=== PATIENT | female | born 1965 | race Caucasian/White ===

== ENCOUNTER 2022-03-25 14:55 | Inpatient (IN) | payer MEDICAID ==
[~2022-03-25] VITALS: Ht 167.6 cm; Wt 94.8 kg
[2022-03-25 15:31] LABS: HEMATOCRIT 29.4 % (31.2-41.9); MEAN CORPUSCULAR HEMOGLOBIN 35.3 uug (24.7-32.8); MEAN CORPUSCULAR VOLUME 108.7 fL (75.5-95.3); PLATELET COUNT (AUTO) 191 K/uL (179-408)
[2022-03-25] MEDS ORDERED: MORPHINE SULFATE 2 MG/1 ML DISP.SYRIN IV ONE ×2 (15:45→18:15)
--- NOTE | 2022-03-25 15:45 | NUR ---
PT IS IN ROOM #2A. DR MARTINEZ EVALUATED THE PT.
[2022-03-25 15:56] LABS: CARBON DIOXIDE 30 mmol/L (21-32); CHLORIDE 100 mmol/L (98-107); CREATININE 1.8 mg/dL (0.6-1.3); GLUCOSE 162 mg/dL (74-106); POTASSIUM 4.3 mmol/L (3.5-5.1); UREA NITROGEN, BLOOD 19 mg/dL (7-18)
[2022-03-25] MEDS ORDERED: MORPHINE SULFATE 2 MG/1 ML DISP.SYRIN ONE ×3 (16:00→23:42)
[2022-03-25] MEDS ORDERED: FOLI1TAB94 PO (16:05)
[2022-03-25] MEDS ORDERED: DOCU100C36 PO (16:05)
[2022-03-25 16:09] LABS: ALANINE AMINOTRANSFERASE 16 U/L (14-59); ALKALINE PHOSPHATASE 114 U/L (50-136); ASPARTATE AMINOTRANSFERASE 26 U/L (15-37); BILIRUBIN,DIRECT 0.2 mg/dL (0.0-0.2); BILIRUBIN,TOTAL 0.9 mg/dL (0.2-1.0); TOTAL PROTEIN, SERUM 6.8 g/dL (6.4-8.2)
[2022-03-25] MEDS ORDERED: BISA-79 PO (16:25)
[2022-03-25] MEDS ORDERED: METH-806 PO (16:25)
[2022-03-25] MEDS ORDERED: SODI5POW2 PO (16:25)
[2022-03-25] MEDS ORDERED: LEVO50TA8 PO (16:25)
[2022-03-25] MEDS ORDERED: SENN-261 PO (16:25)
[2022-03-25] MEDS ORDERED: QUET25TA PO (16:25)
[2022-03-25] MEDS ORDERED: NYSTATIN TP (16:25)
[2022-03-25] MEDS ORDERED: BISA10SU61 RC (16:25)
[2022-03-25] MEDS ORDERED: MONT10TA22 PO (16:25)
[2022-03-25] MEDS ORDERED: ACET-73 PO (16:25)
[2022-03-25] MEDS ORDERED: [UNRECOGNIZED DRUG - MIXTURE] PO (16:25)
[2022-03-25] MEDS ORDERED: DULO60CA45 PO (16:25)
[2022-03-25] MEDS ORDERED: FOLI0.8T2 PO (16:25)
[2022-03-25] MEDS ORDERED: INSU100C4 SQ (16:25)
[2022-03-25] MEDS ORDERED: POLY17PO4 PO (16:25)
[2022-03-25] MEDS ORDERED: MAGN400O6 PO (16:25)
[2022-03-25] MEDS ORDERED: ACET-2154 PO (16:25)
[2022-03-25] MEDS ORDERED: PANT40TA49 PO (16:25)
[2022-03-25] MEDS ORDERED: HYOS0.3732 SL (16:25)
[2022-03-25] MEDS ORDERED: CHOLECALCIFEROL PO (16:25)
[2022-03-25] MEDS ORDERED: SIME80TA15 PO (16:25)
[2022-03-25] MEDS ORDERED: FUROSEMIDE 40 MG/4 ML VIAL IV ONE (17:00)
[2022-03-25] MEDS ORDERED: FUROSEMIDE 40 MG/4 ML VIAL ONE (17:48)
--- NOTE | 2022-03-25 20:45 | NUR ---
Patient has been admitted by Dr. Martinez. Unavalible beds in third floor, floor is full. Holding patient in ER.
[2022-03-25] MEDS ORDERED: TEMAZEPAM 15 MG CAPSULE PO PRN (21:00)
[2022-03-25] MEDS: SENNOSIDES 1 TABLET PO SCH (21:00)
[2022-03-25] MEDS ORDERED: MONTELUKAST SODIUM 10 MG TABLET ONE (23:16)
[2022-03-25] MEDS: MONTELUKAST SODIUM 10 MG TABLET PO SCH (23:24)
[2022-03-25] MEDS: MORPHINE SULFATE 2 MG/1 ML DISP.SYRIN IV PRN (23:47)
[2022-03-26] MEDS: SENNOSIDES 1 TABLET PO SCH (00:30)
--- NOTE | 2022-03-26 02:14 | NUR ---
Called [facility] for panel call. Nirmala Rooney hotel reservationist, waiting for call back.
--- NOTE | 2022-03-26 02:28 | NUR ---
Spoke to Dr. Rooney for additional pain medication orders and generalized body itchiness stated per patient without visible rash. No orders at this time per Dr. Rooney.
[2022-03-26] MEDS ORDERED: MORPHINE SULFATE 2 MG/1 ML DISP.SYRIN ONE ×2 (03:53→08:48)
[2022-03-26] MEDS: MORPHINE SULFATE 2 MG/1 ML DISP.SYRIN IV PRN ×3 (03:55→10:17)
[2022-03-26] MEDS ORDERED: PANTOPRAZOLE SODIUM 40 MG TABLET.DR PO SCH (07:00)
[2022-03-26] MEDS ORDERED: LEVOTHYROXINE SODIUM 50 MCG TABLET PO SCH (07:00)
[2022-03-26] MEDS ORDERED: LEVOTHYROXINE SODIUM 50 MCG TABLET ONE (07:03)
[2022-03-26] MEDS ORDERED: PANTOPRAZOLE SODIUM 40 MG TABLET.DR PO ONE (07:03)
[2022-03-26] MEDS: PANTOPRAZOLE SODIUM 40 MG TABLET.DR PO SCH (07:06)
--- NOTE | 2022-03-26 07:10 | NUR ---
Received report from SASCHA Sweet.
[2022-03-26 07:24] LABS: HEMATOCRIT 28.9 % (31.2-41.9); MEAN CORPUSCULAR HEMOGLOBIN 35.4 uug (24.7-32.8); MEAN CORPUSCULAR VOLUME 109.3 fL (75.5-95.3); PLATELET COUNT (AUTO) 179 K/uL (179-408)
--- NOTE | 2022-03-26 07:29 | NUR ---
Morphine reassessment for 190 was not completed; therefore, I put not done.
[2022-03-26 07:37] LABS: THYROID STIMULATING HORMONE 16.537 mIU/mL (0.358-3.740)
[2022-03-26 07:43] LABS: BILIRUBIN,TOTAL 0.8 mg/dL (0.2-1.0); CREATININE 2.2 mg/dL (0.6-1.3); MAGNESIUM 2.7 mg/dL (1.8-2.4); PHOSPHOROUS 2.7 mg/dL (2.5-4.9); POTASSIUM 4.3 mmol/L (3.5-5.1); TOTAL PROTEIN, SERUM 6.6 g/dL (6.4-8.2)
[2022-03-26] MEDS ORDERED: CHOLECALCIFEROL 1,000 UNIT TABLET ONE (08:58)
[2022-03-26] MEDS ORDERED: ASPIRIN EC 81 MG TABLET.DR PO ONE (08:58)
[2022-03-26] MEDS ORDERED: METOPROLOL TARTRATE 50 MG TABLET ONE ×2 (08:58→21:44)
[2022-03-26] MEDS: DULOXETINE 60 MG CAPSULE.DR PO SCH (09:00)
[2022-03-26] MEDS: QUETIAPINE FUMARATE 25 MG TABLET PO SCH ×2 (09:00→17:00)
[2022-03-26] MEDS: METOPROLOL TARTRATE 25 MG TABLET PO SCH ×2 (09:01→21:46)
[2022-03-26] MEDS: FOLIC ACID/VITAMIN B COMP W-C TABLET PO SCH (09:02)
[2022-03-26] MEDS: CHOLECALCIFEROL 1,000 UNIT TABLET PO SCH (09:03)
[2022-03-26] MEDS: ASPIRIN EC 81 MG TABLET.DR PO SCH (09:06)
[2022-03-26] MEDS ORDERED: ONDANSETRON 4 MG/2 ML VIAL ONE ×2 (09:12→21:43)
[2022-03-26] MEDS: ONDANSETRON 4 MG/2 ML VIAL IV PRN ×2 (09:16→21:46)
[2022-03-26] MEDS ORDERED: HYDROMORPHONE 1 MG/1 ML DISP.SYRIN ONE ×2 (10:21→15:40)
[2022-03-26] MEDS: HYDROMORPHONE 1 MG/1 ML DISP.SYRIN IV PRN ×3 (10:24→21:46)
--- NOTE | 2022-03-26 11:00 | NUR ---
Dialysis team has arrived.
--- NOTE | 2022-03-26 12:30 | NUR ---
Patient provided lunch tray.
--- NOTE | 2022-03-26 14:45 | NUR ---
Dialysis completed. 3 L removed.
--- NOTE | 2022-03-26 18:53 | NUR ---
Report given to SASCHA Sweet.
--- NOTE | 2022-03-26 19:30 | NUR ---
While performing skin assessment. Noted skin rash under skin folds of both breasts and stomach fold. Patient requesting nyastatin powder.
--- NOTE | 2022-03-26 20:15 | NUR ---
Spoke to Bhumi Salmon [employer]ER regarding additional orders for patient. Given telephone order with read back for nyastatin powder, Benadryl 25mg q8hr PO PRN, and additional 0.5mg Dilaudid IV once.
--- NOTE | 2022-03-26 20:15 | NUR ---
Called [facility] for panel call. Bhumi Salmon NP operations architect, waiting for call back.
[2022-03-26] MEDS ORDERED: HYDROMORPHONE 1 MG/1 ML DISP.SYRIN IV ONE (20:30)
[2022-03-26] MEDS ORDERED: ATORVASTATIN 40 MG TABLET PO SCH (21:00)
--- NOTE | 2022-03-26 21:00 | NUR ---
Spoke with soda dry house operator. Do not have nyastatin and sennakot on floor. produce department supervisor said nyastatin not in stock in other floors. Unable to administer nyastatin powder at this time.
[2022-03-26] MEDS ORDERED: HYDROMORPHONE 2 MG/1 ML DISP.SYRIN ONE (21:37)
[2022-03-26] MEDS ORDERED: diphenhydrAMINE 25 MG CAP PO ONE (21:43)
[2022-03-26] MEDS ORDERED: MONTELUKAST SODIUM 10 MG TABLET ONE (21:43)
[2022-03-26] MEDS ORDERED: ATORVASTATIN 20 MG TABLET ONE (21:44)
[2022-03-26] MEDS: MONTELUKAST SODIUM 10 MG TABLET PO SCH (21:46)
[2022-03-26] MEDS: ATORVASTATIN 10 MG TABLET PO SCH (21:46)
--- NOTE | 2022-03-27 00:12 | NUR ---
Gave report to Will RN on third floor. Patient going to third room 316
--- NOTE | 2022-03-27 00:15 | NUR ---
Patient had large yellow void in brief. Provided perineal care.
[2022-03-27] MEDS: NYSTATIN POWDER 15 GM BOTTLE TOP SCH ×3 (00:30→21:00)
--- NOTE | 2022-03-27 00:30 | NUR ---
Mycostatin powder not given, medication not available, per RN super.
--- NOTE | 2022-03-27 00:30 | NUR ---
Admitted in tele floor under the care of Dr. dial, no sob no chest pain, tele monitor sinus rhythm, with left chest perma cath, right and leg thigh thru leg edema 2 plus, with left 5 toes amputee, left breast underneath rashes, R/L arns bruises, no dentures, patient claims she still urinating 5 days ago. cont to monitor.
--- NOTE | 2022-03-27 00:33 | NUR ---
Patient taken to third floor TELE room 316 via gurney with personal belongings. Personal belongins list completed and signed. Patient in stable condition, no signs of distress. Will RN aware of patients arrival.
[2022-03-27 01:00] VITALS: BP 94/50
[2022-03-27] MEDS: HYDROMORPHONE 1 MG/1 ML DISP.SYRIN IV PRN ×3 (02:02→22:30)
[2022-03-27] MEDS: diphenhydrAMINE 25 MG CAP PO PRN (02:02)
[2022-03-27] MEDS: PANTOPRAZOLE SODIUM 40 MG TABLET.DR PO SCH (06:15)
[2022-03-27] MEDS: LEVOTHYROXINE SODIUM 75 MCG TABLET PO SCH (06:15)
[2022-03-27 06:21] VITALS: BP 95/62
--- NOTE | 2022-03-27 06:24 | NUR ---
Patient alert oriented, no sob no chest pain, Left upper chest perma cath dressing intact, v/s stable, tele sinus rhythm at this time, cont to monitor.
--- NOTE | 2022-03-27 06:28 | NUR ---
Per ER Nurse report patient has diaylsis yesterday industrial photographer hours, took out 3 liters. cont t monitor.
[2022-03-27 06:50] LABS: HEMATOCRIT 29.8 % (31.2-41.9); MEAN CORPUSCULAR HEMOGLOBIN 35.9 uug (24.7-32.8); MEAN CORPUSCULAR VOLUME 109.9 fL (75.5-95.3); PLATELET COUNT (AUTO) 182 K/uL (179-408)
[2022-03-27 07:14] LABS: BILIRUBIN,TOTAL 0.7 mg/dL (0.2-1.0); MAGNESIUM 2.4 mg/dL (1.8-2.4); PHOSPHOROUS 2.4 mg/dL (2.5-4.9); POTASSIUM 4.2 mmol/L (3.5-5.1); TOTAL PROTEIN, SERUM 6.5 g/dL (6.4-8.2)
[2022-03-27] MEDS: ASPIRIN EC 81 MG TABLET.DR PO SCH (08:21)
[2022-03-27] MEDS: QUETIAPINE FUMARATE 25 MG TABLET PO SCH ×3 (08:21→17:00)
[2022-03-27] MEDS: DULOXETINE 60 MG CAPSULE.DR PO SCH ×2 (08:21→08:45)
[2022-03-27] MEDS: FOLIC ACID/VITAMIN B COMP W-C TABLET PO SCH (08:22)
[2022-03-27] MEDS: CHOLECALCIFEROL 1,000 UNIT TABLET PO SCH (08:22)
[2022-03-27] MEDS: METOPROLOL TARTRATE 25 MG TABLET PO SCH ×3 (08:26→21:00)
[2022-03-27] MEDS: ONDANSETRON 4 MG/2 ML VIAL IV PRN ×3 (08:31→23:08)
[2022-03-27 11:42] VITALS: BP 81/38
[2022-03-27 16:40] VITALS: BP 94/53
[2022-03-27 20:00] VITALS: BP 106/40
[2022-03-27] MEDS: SENNOSIDES 1 TABLET PO SCH (22:43)
[2022-03-27] MEDS: MONTELUKAST SODIUM 10 MG TABLET PO SCH (22:43)
[2022-03-27] MEDS: ATORVASTATIN 10 MG TABLET PO SCH (22:43)
[2022-03-28] VITALS: BP 99/31
[2022-03-28] MEDS: TEMAZEPAM 7.5 MG CAPSULE PO PRN ×2 (01:46→23:33)
[2022-03-28] MEDS: diphenhydrAMINE 25 MG CAP PO PRN ×3 (01:46→22:23)
[2022-03-28] MEDS: HYDROMORPHONE 1 MG/1 ML DISP.SYRIN IV PRN ×3 (02:02→09:25)
[2022-03-28] MEDS: ONDANSETRON 4 MG/2 ML VIAL IV PRN (05:13)
[2022-03-28 06:00] VITALS: BP 124/54
--- NOTE | 2022-03-28 06:00 | NUR ---
--PT CONT. WITH STABLE VS. PT HAS RECEIVED H.DIALYSIS. PT RUT WELL. 3100CC TAKEN OFF. IV I/P VIA LEFT ARM IV HL. PT HAS LEFT CHEST PERMACATH. PT C/O PAIN(GENERAL C/O PAIN). PT MED FOR PAIN WITH DILAUDID 1MG TOTALX3. PT ALSO C/O ITCHIING-PT MED WITH BENADRYL. PT RESTIING QUIETLY AFTER MED. GEN. COND HAS BEEN STABLE. CEE RN
[2022-03-28] MEDS: LEVOTHYROXINE SODIUM 75 MCG TABLET PO SCH (06:24)
[2022-03-28] MEDS: PANTOPRAZOLE SODIUM 40 MG TABLET.DR PO SCH (06:24)
[2022-03-28 07:13] LABS: HEMATOCRIT 27.8 % (31.2-41.9); MEAN CORPUSCULAR HEMOGLOBIN 35.3 uug (24.7-32.8); MEAN CORPUSCULAR VOLUME 109.8 fL (75.5-95.3); PLATELET COUNT (AUTO) 162 K/uL (179-408)
[2022-03-28 07:32] LABS: BILIRUBIN,TOTAL 0.6 mg/dL (0.2-1.0); CREATININE 1.8 mg/dL (0.6-1.3); MAGNESIUM 2.3 mg/dL (1.8-2.4); PHOSPHOROUS 2.4 mg/dL (2.5-4.9); TOTAL PROTEIN, SERUM 6.4 g/dL (6.4-8.2)
[2022-03-28] MEDS: QUETIAPINE FUMARATE 25 MG TABLET PO SCH ×3 (08:40→17:00)
[2022-03-28] MEDS: DULOXETINE 60 MG CAPSULE.DR PO SCH ×2 (08:40→08:52)
[2022-03-28] MEDS: FOLIC ACID/VITAMIN B COMP W-C TABLET PO SCH (08:40)
[2022-03-28] MEDS: ASPIRIN EC 81 MG TABLET.DR PO SCH (08:40)
[2022-03-28] MEDS: CHOLECALCIFEROL 1,000 UNIT TABLET PO SCH (08:40)
[2022-03-28] MEDS: METOPROLOL TARTRATE 25 MG TABLET PO SCH ×2 (08:51→21:00)
[2022-03-28] MEDS: NYSTATIN POWDER 15 GM BOTTLE TOP SCH ×3 (09:16→21:24)
--- NOTE | 2022-03-28 10:37 | NUR ---
Pt had a little skin tear at admission. Today she scratched it with her nail and it was bleeding a little, but I applied kerlix on it and the bleeding has stopped.
[2022-03-28] MEDS ORDERED: NEUTRA PHOS PACKET PO ONE (11:00)
[2022-03-28 12:18] VITALS: BP 106/49
[2022-03-28] MEDS ORDERED: EPOETIN ALFA-EPBX 10,000 UNIT/ML VIAL SQ ONE (13:00)
[2022-03-28] MEDS ORDERED: HYDROMORPHONE 1 MG/1 ML DISP.SYRIN IV PRN (14:15)
[2022-03-28] MEDS: HYDROMORPHONE 2 MG/1 ML DISP.SYRIN IV PRN ×2 (14:31→22:12)
[2022-03-28] MEDS: NEPRO (VANILLA) 237 ML CAN PO SCH (18:11)
[2022-03-28 20:48] VITALS: BP 99/35
[2022-03-28] MEDS: SENNOSIDES 1 TABLET PO SCH (21:22)
[2022-03-28] MEDS: ATORVASTATIN 10 MG TABLET PO SCH (21:22)
[2022-03-28] MEDS: MONTELUKAST SODIUM 10 MG TABLET PO SCH (21:22)
[2022-03-29] MEDS: HYDROMORPHONE 2 MG/1 ML DISP.SYRIN IV PRN ×5 (02:25→20:58)
[2022-03-29 04:46] VITALS: BP 104/55
[2022-03-29] MEDS: LEVOTHYROXINE SODIUM 75 MCG TABLET PO SCH (06:29)
[2022-03-29] MEDS: PANTOPRAZOLE SODIUM 40 MG TABLET.DR PO SCH (06:29)
[2022-03-29] MEDS: CHOLECALCIFEROL 1,000 UNIT TABLET PO SCH (10:09)
[2022-03-29] MEDS: QUETIAPINE FUMARATE 25 MG TABLET PO SCH ×2 (10:09→10:20)
[2022-03-29] MEDS: DULOXETINE 60 MG CAPSULE.DR PO SCH ×2 (10:09→10:20)
[2022-03-29] MEDS: FOLIC ACID/VITAMIN B COMP W-C TABLET PO SCH (10:09)
[2022-03-29] MEDS: METOPROLOL TARTRATE 25 MG TABLET PO SCH ×2 (10:11→20:51)
[2022-03-29] MEDS: ASPIRIN EC 81 MG TABLET.DR PO SCH (10:11)
[2022-03-29] MEDS: NEPRO (VANILLA) 237 ML CAN PO SCH ×2 (10:12→16:44)
[2022-03-29] MEDS: NYSTATIN POWDER 15 GM BOTTLE TOP SCH ×2 (10:12→21:24)
[2022-03-29 16:03] VITALS: BP 120/52
--- NOTE | 2022-03-29 19:25 | NUR ---
Pt. resting comfortably, gets dilaudid q 4 hrs for generalized pain. No other complains. Vitals stable
[2022-03-29 20:00] VITALS: BP 122/44
--- NOTE | 2022-03-29 20:00 | NUR ---
Received Pt from Day shift. Pt is A&O x4 and cooperative. No S&S of distress. Pt is stable. Pt on 2L O2. Safety measures in place. Will continue to monitor.
[2022-03-29] MEDS: MONTELUKAST SODIUM 10 MG TABLET PO SCH (20:49)
[2022-03-29] MEDS: ATORVASTATIN 10 MG TABLET PO SCH (20:51)
[2022-03-29] MEDS: diphenhydrAMINE 25 MG CAP PO PRN (20:51)
[2022-03-29] MEDS: SENNOSIDES 1 TABLET PO SCH (20:51)
[2022-03-29] MEDS: TEMAZEPAM 7.5 MG CAPSULE PO PRN (21:09)
[2022-03-30] MEDS: HYDROMORPHONE 2 MG/1 ML DISP.SYRIN IV PRN ×5 (02:12→22:22)
[2022-03-30] MEDS: ONDANSETRON 4 MG/2 ML VIAL IV PRN ×2 (05:42→21:56)
[2022-03-30 06:02] VITALS: BP 112/58
[2022-03-30] MEDS: PANTOPRAZOLE SODIUM 40 MG TABLET.DR PO SCH (06:39)
[2022-03-30] MEDS: LEVOTHYROXINE SODIUM 75 MCG TABLET PO SCH (06:39)
--- NOTE | 2022-03-30 07:04 | NUR ---
End of shift Note: Received Pt from Day shift. Pt is A&O x4 and cooperative. No S&S of distress. Pt is stable. Pt on 2L O2. Pt continually uses Dilaudid. Safety measures in place.
[2022-03-30 07:23] LABS: HEMATOCRIT 27.9 % (31.2-41.9); MEAN CORPUSCULAR HEMOGLOBIN 35.8 uug (24.7-32.8); MEAN CORPUSCULAR VOLUME 109.4 fL (75.5-95.3); PLATELET COUNT (AUTO) 203 K/uL (179-408)
[2022-03-30 07:30] LABS: CREATININE 2.6 mg/dL (0.6-1.3); MAGNESIUM 2.2 mg/dL (1.8-2.4); PHOSPHOROUS 3.3 mg/dL (2.5-4.9); POTASSIUM 4.4 mmol/L (3.5-5.1)
--- NOTE | 2022-03-30 07:52 | NUR ---
On 2057, accidentally took 2 vials of Dilaudid for Pt (4 mg) by mistake. However, wasted 2.5 mg of this Dilaudid. This caused a discrepancy. This note is to verify that I extracted 4 mg of Dilaudid and wasted 2.5 mg of this Dilaudid and administered the ordered 1.5 mg. Discrepancy note was settled in [employer] with [place] (SASCHA), and [place] (SASCHA). Contacted pharmacy in person about this matter at 0750. Addendum: 03/30/22 at 0759 by MUNIRA LUZ RN [id number]/29/22
[2022-03-30] MEDS: FOLIC ACID/VITAMIN B COMP W-C TABLET PO SCH (08:58)
[2022-03-30] MEDS: ASPIRIN EC 81 MG TABLET.DR PO SCH (08:59)
[2022-03-30] MEDS: CHOLECALCIFEROL 1,000 UNIT TABLET PO SCH (08:59)
[2022-03-30] MEDS: METOPROLOL TARTRATE 25 MG TABLET PO SCH ×2 (09:06→20:56)
[2022-03-30] MEDS: NYSTATIN POWDER 15 GM BOTTLE TOP SCH ×2 (09:07→21:53)
[2022-03-30] MEDS: NEPRO (VANILLA) 237 ML CAN PO SCH ×2 (09:26→17:33)
[2022-03-30 11:08] VITALS: BP 110/38
[2022-03-30] MEDS: diphenhydrAMINE 25 MG CAP PO PRN (13:16)
[2022-03-30] MEDS: MIRALAX 17 GM POWD.PACK PO PRN (15:01)
[2022-03-30 15:29] VITALS: BP 94/49
--- NOTE | 2022-03-30 19:48 | NUR ---
Received Pt from Day shift. Pt was asleep during dialysis treatment, but, when woken up, is A&Ox4 and cooperative. No S&S of distress. Pt is stable. Pt on 2L O2. Pt currently receiving dialysis. Pt Safety measures in place. Will continue to monitor.
[2022-03-30 20:00] VITALS: BP 94/47
[2022-03-30] MEDS: SENNOSIDES 1 TABLET PO SCH (21:54)
[2022-03-30] MEDS: ATORVASTATIN 10 MG TABLET PO SCH (21:54)
[2022-03-30] MEDS: MONTELUKAST SODIUM 10 MG TABLET PO SCH (21:54)
[2022-03-31] MEDS: HYDROMORPHONE 2 MG/1 ML DISP.SYRIN IV PRN ×5 (02:39→23:21)
[2022-03-31 04:00] VITALS: BP 137/47
[2022-03-31] MEDS: LEVOTHYROXINE SODIUM 75 MCG TABLET PO SCH (06:46)
[2022-03-31] MEDS: PANTOPRAZOLE SODIUM 40 MG TABLET.DR PO SCH (06:46)
[2022-03-31 06:55] LABS: HEMATOCRIT 25.3 % (31.2-41.9); MEAN CORPUSCULAR HEMOGLOBIN 36.4 uug (24.7-32.8); MEAN CORPUSCULAR VOLUME 108.2 fL (75.5-95.3); PLATELET COUNT (AUTO) 186 K/uL (179-408)
[2022-03-31 07:04] LABS: CREATININE 2.3 mg/dL (0.6-1.3); POTASSIUM 3.8 mmol/L (3.5-5.1)
[2022-03-31 07:14] LABS: MAGNESIUM 2.3 mg/dL (1.8-2.4); PHOSPHOROUS 2.5 mg/dL (2.5-4.9)
--- NOTE | 2022-03-31 07:44 | NUR ---
End of shift Note: Received Pt from Day shift. Pt is A&O x4 and cooperative. No S&S of distress. Pt is stable. Pt on 3L O2. Pt continually uses Dilaudid. Safety measures in place.
[2022-03-31] MEDS: METOPROLOL TARTRATE 25 MG TABLET PO SCH ×2 (09:00→21:00)
[2022-03-31] MEDS: CHOLECALCIFEROL 1,000 UNIT TABLET PO SCH (09:02)
[2022-03-31] MEDS: FOLIC ACID/VITAMIN B COMP W-C TABLET PO SCH (09:03)
[2022-03-31] MEDS: ASPIRIN EC 81 MG TABLET.DR PO SCH (09:03)
[2022-03-31] MEDS: ACETAMINOPHEN 325 MG TABLET PO PRN ×2 (09:12→21:13)
[2022-03-31] MEDS: NEPRO (VANILLA) 237 ML CAN PO SCH ×2 (09:42→17:38)
[2022-03-31] MEDS: NYSTATIN POWDER 15 GM BOTTLE TOP SCH ×2 (09:42→21:12)
[2022-03-31 11:21] VITALS: BP 103/51
--- NOTE | 2022-03-31 11:21 | NUR ---
DR LYRIC SHCMITZ HERE AND SEEN PATIENT WITH NEW ORDERS AND NOTED
[2022-03-31] MEDS: diphenhydrAMINE 25 MG CAP PO PRN ×2 (12:33→21:26)
[2022-03-31] MEDS: AZITHROMYCIN IV 500 MG in IV DEXTROSE 5% 250 ML IV SCH (12:33)
[2022-03-31] MEDS: ONDANSETRON 4 MG/2 ML VIAL IV PRN ×2 (12:35→18:06)
[2022-03-31 14:06] LABS: HEPATITIS B SURFACE AG Negative (Negative)
[2022-03-31 15:20] VITALS: BP 104/47
--- NOTE | 2022-03-31 17:00 | NUR ---
TOLERATED IV ANTIBIOTICS ORDERED WITH NO ADVERSE OR ALLERGIC REACTIONS AT THIS TIME.
[2022-03-31] MEDS: MIRALAX 17 GM POWD.PACK PO PRN ×2 (18:06→21:12)
--- NOTE | 2022-03-31 18:07 | NUR ---
PATIENT STATED HAVING PAIN AND FEELING NAUSEA MEDICATED WITH DILAUDID AND ZOFRAN ORDERED WILL CONTINUE TO OBSERVE.
[2022-03-31 20:00] VITALS: BP 104/53
[2022-03-31] MEDS: SENNOSIDES 1 TABLET PO SCH (21:12)
[2022-03-31] MEDS: MONTELUKAST SODIUM 10 MG TABLET PO SCH (21:12)
[2022-03-31] MEDS: ATORVASTATIN 10 MG TABLET PO SCH (21:13)
[2022-04-01 04:00] VITALS: BP 115/53
[2022-04-01] MEDS: PANTOPRAZOLE SODIUM 40 MG TABLET.DR PO SCH (06:20)
[2022-04-01] MEDS: LEVOTHYROXINE SODIUM 75 MCG TABLET PO SCH (06:21)
[2022-04-01] MEDS: ONDANSETRON 4 MG/2 ML VIAL IV PRN (06:24)
[2022-04-01] MEDS: HYDROMORPHONE 2 MG/1 ML DISP.SYRIN IV PRN (06:57)
[2022-04-01 07:13] LABS: HEMATOCRIT 26.1 % (31.2-41.9); MEAN CORPUSCULAR HEMOGLOBIN 35.7 uug (24.7-32.8); MEAN CORPUSCULAR VOLUME 107.8 fL (75.5-95.3); PLATELET COUNT (AUTO) 189 K/uL (179-408)
--- NOTE | 2022-04-01 07:15 | NUR ---
RECEIVED PATIENT IN BED AWAKE ALERT ORIENTED DENIES PAIN OR DISCOMFORTS AT THIS TIME ON O2 WITH NO SHORTNESS OF BREATH CALL LIGHTS AND PERSONAL BELONGINGS ARE WITHIN EASY REACH AT THIS TIME WILL CONTINUE TO OBSERVE.
[2022-04-01 07:22] LABS: CREATININE 2.8 mg/dL (0.6-1.3)
--- NOTE | 2022-04-01 07:30 | NUR ---
REPORT GIVEN TO SASCHA [place]
--- NOTE | 2022-04-01 07:40 | NUR ---
DR ROMERO HERE SEEN PATIENT WITH NO NEW ORDERS AT THIS TIME
[2022-04-01] MEDS: ASPIRIN EC 81 MG TABLET.DR PO SCH (08:45)
[2022-04-01] MEDS: CHOLECALCIFEROL 1,000 UNIT TABLET PO SCH (08:45)
[2022-04-01] MEDS: FOLIC ACID/VITAMIN B COMP W-C TABLET PO SCH (08:45)
[2022-04-01] MEDS: METOPROLOL TARTRATE 25 MG TABLET PO SCH ×2 (08:48→20:49)
[2022-04-01] MEDS: NYSTATIN POWDER 15 GM BOTTLE TOP SCH ×2 (08:49→20:49)
[2022-04-01] MEDS: NEPRO (VANILLA) 237 ML CAN PO SCH ×2 (08:49→16:18)
--- NOTE | 2022-04-01 09:30 | NUR ---
PATIENT HAS A SMALL EMESIS OF PARTLY UNDIGESTED FOOD MOSTLY LIQUIDS SHE WAS GIVEN ZOFRAN AND NOT DUE YET SO LYRIC NOTIFIED STATED WILL SEE PATIENT.
--- NOTE | 2022-04-01 10:31 | NUR ---
PATIENT SEEN AND EXAMINED BY LYRIC SCHMITZ WITH NEW ORDERS AND NOTED.
--- NOTE | 2022-04-01 10:45 | NUR ---
PATIENT IS AWAKE ALERT AND AWARE SEEMS FORGETFUL STATED THAT SHE HAS NOT HAD A BOWEL MOVEMENT AND FEELS CONSTIPATED BUT ATTEMPTS TO REASSURE HER THAT DOCUMENTATION IN THE [employer] STATED THAT SHE DID ,DID GIVE HER MIRALAX IN THE EVENING AND SHE IS ON ROUTINE SENOKOT SO I CALLED DR MINOR WITH ORDER FOR DULCOLAX SUPPOSITORY AND NOTED. Addendum: 04/01/22 at 5247 by PRATIK GAY RN WRONG TIMING THIS ENTRY OCCURES AT 2081
[2022-04-01 11:50] VITALS: BP 163/81
[2022-04-01] MEDS: AZITHROMYCIN IV 500 MG in IV DEXTROSE 5% 250 ML IV SCH (12:31)
--- NOTE | 2022-04-01 12:33 | NUR ---
IV SITE INFILTERATED MULTIPLE ATTEMPTS LYRIC NOTIFIED WITH ORDER TO INSERT A MIDLINE MID LINE NURSE HERE AND MID LINE INSERTED TO HER LEFT UPPER ARM AND CONTINUED ON ANTIBIOTICS ORDERED.
[2022-04-01] MEDS: METOCLOPRAMIDE HCL 10 MG/2 ML VIAL IV PRN ×2 (12:46→18:23)
[2022-04-01 16:06] VITALS: BP 133/65
--- NOTE | 2022-04-01 16:16 | NUR ---
D/C PLANNING AWAITING FOR RESULTS OF CXR AND KUB ORDERED AND ALSO PER LYRIC ROMERO STATED TO HER THAT HE ORDERED DIALYSIS TO BE DONE ON PATIENT TODAY BEFORE SHE COULD BE DISCHARGED.
[2022-04-01] MEDS: MIRALAX 17 GM POWD.PACK PO PRN (18:23)
--- NOTE | 2022-04-01 18:26 | NUR ---
MEDICATED WITH REGLAN AND MIRALAX PER PATIENTS REQUEST RESTING IN BED AWAITING FOR DIALYSIS TODAY.
[2022-04-01 20:00] VITALS: BP 168/78
[2022-04-01] MEDS: ATORVASTATIN 10 MG TABLET PO SCH (20:48)
[2022-04-01] MEDS: MONTELUKAST SODIUM 10 MG TABLET PO SCH (20:48)
[2022-04-01] MEDS: SENNOSIDES 1 TABLET PO SCH (20:48)
[2022-04-01] MEDS ORDERED: BISACODYL 10 MG SUPP.RECT RC ONE (22:45)
[2022-04-02] MEDS: HYDROMORPHONE 2 MG/1 ML DISP.SYRIN IV PRN ×5 (01:00→22:39)
--- NOTE | 2022-04-02 01:00 | NUR ---
PATIENT C/O HAVING SEVERE PAIN MEDICATED WITH DILAUDID ORDERED MADE COMFORTABLE WILL OBSERVE.
[2022-04-02 04:00] VITALS: BP 137/60
--- NOTE | 2022-04-02 06:00 | NUR ---
MEDICATED WITH DILAUDID FOR PAIN REGLAN FOR C/O NAUSEA AND BENADRYL FOR ITCHING ORDERED MADE COMFORTABLE WILL CONTINUE TO OBSERVE.
[2022-04-02] MEDS: diphenhydrAMINE 25 MG CAP PO PRN ×2 (06:04→13:23)
[2022-04-02] MEDS: PANTOPRAZOLE SODIUM 40 MG TABLET.DR PO SCH (06:04)
[2022-04-02] MEDS: METOCLOPRAMIDE HCL 10 MG/2 ML VIAL IV PRN ×2 (06:04→13:24)
[2022-04-02] MEDS: LEVOTHYROXINE SODIUM 75 MCG TABLET PO SCH (06:04)
[2022-04-02 06:56] LABS: HEMATOCRIT 27.6 % (31.2-41.9); MEAN CORPUSCULAR VOLUME 107.4 fL (75.5-95.3); PLATELET COUNT (AUTO) 230 K/uL (179-408)
[2022-04-02 07:03] LABS: CREATININE 3.1 mg/dL (0.6-1.3); POTASSIUM 4.4 mmol/L (3.5-5.1)
[2022-04-02] MEDS: FOLIC ACID/VITAMIN B COMP W-C TABLET PO SCH (10:00)
[2022-04-02] MEDS: METOPROLOL TARTRATE 25 MG TABLET PO SCH ×2 (10:01→21:40)
[2022-04-02] MEDS: ASPIRIN EC 81 MG TABLET.DR PO SCH (10:01)
[2022-04-02] MEDS: CHOLECALCIFEROL 1,000 UNIT TABLET PO SCH (10:01)
[2022-04-02] MEDS: MIRALAX 17 GM POWD.PACK PO PRN (10:01)
[2022-04-02] MEDS: NYSTATIN POWDER 15 GM BOTTLE TOP SCH ×2 (10:02→21:37)
[2022-04-02] MEDS: NEPRO (VANILLA) 237 ML CAN PO SCH ×2 (10:02→17:48)
[2022-04-02 11:28] VITALS: BP 142/70
[2022-04-02] MEDS ORDERED: LEVO75TA7 PO (12:04)
[2022-04-02] MEDS ORDERED: ASPI-618 PO (12:04)
[2022-04-02] MEDS ORDERED: METO25TA6 PO (12:04)
[2022-04-02] MEDS ORDERED: AZIT500V8 IV (12:04)
[2022-04-02] MEDS ORDERED: NYST15PO4 TOP (12:04)
[2022-04-02] MEDS ORDERED: Nepro PO (12:04)
[2022-04-02] MEDS ORDERED: ATOR10TA PO (12:04)
--- NOTE | 2022-04-02 13:18 | NUR ---
dialysis stopped 2 liters removed funmi well. vss
[2022-04-02] MEDS: AZITHROMYCIN IV 500 MG in IV DEXTROSE 5% 250 ML IV SCH (13:23)
[2022-04-02 14:57] VITALS: BP 110/44
[2022-04-02 20:00] VITALS: BP 146/65
[2022-04-02] MEDS: ATORVASTATIN 10 MG TABLET PO SCH (21:35)
[2022-04-02] MEDS: SENNOSIDES 1 TABLET PO SCH (21:36)
[2022-04-02] MEDS: MONTELUKAST SODIUM 10 MG TABLET PO SCH (21:36)
[2022-04-02] MEDS: TEMAZEPAM 7.5 MG CAPSULE PO PRN (23:31)
[2022-04-03] MEDS: ACETAMINOPHEN 325 MG TABLET PO PRN (03:19)
[2022-04-03 04:00] VITALS: BP 104/62
[2022-04-03] MEDS: HYDROMORPHONE 2 MG/1 ML DISP.SYRIN IV PRN ×4 (06:36→21:52)
[2022-04-03] MEDS: PANTOPRAZOLE SODIUM 40 MG TABLET.DR PO SCH (06:36)
[2022-04-03] MEDS: LEVOTHYROXINE SODIUM 75 MCG TABLET PO SCH (07:06)
[2022-04-03 07:49] LABS: MEAN CORPUSCULAR HEMOGLOBIN 35.7 uug (24.7-32.8); MEAN CORPUSCULAR VOLUME 107.8 fL (75.5-95.3); PLATELET COUNT (AUTO) 222 K/uL (179-408)
[2022-04-03 08:00] LABS: CREATININE 2.4 mg/dL (0.6-1.3); POTASSIUM 3.9 mmol/L (3.5-5.1)
[2022-04-03] MEDS: ONDANSETRON 4 MG/2 ML VIAL IV PRN (08:47)
[2022-04-03] MEDS: FOLIC ACID/VITAMIN B COMP W-C TABLET PO SCH (08:55)
[2022-04-03] MEDS: METOPROLOL TARTRATE 25 MG TABLET PO SCH ×2 (08:55→21:00)
[2022-04-03] MEDS: ASPIRIN EC 81 MG TABLET.DR PO SCH (08:55)
[2022-04-03] MEDS: CHOLECALCIFEROL 1,000 UNIT TABLET PO SCH (08:55)
[2022-04-03] MEDS: NEPRO (VANILLA) 237 ML CAN PO SCH ×2 (08:55→17:46)
[2022-04-03] MEDS: NYSTATIN POWDER 15 GM BOTTLE TOP SCH ×2 (08:56→21:00)
[2022-04-03 11:05] VITALS: BP 135/64
[2022-04-03] MEDS: AZITHROMYCIN 250 MG TABLET PO SCH (11:56)
[2022-04-03 15:39] VITALS: BP 105/48
[2022-04-03] MEDS: MONTELUKAST SODIUM 10 MG TABLET PO SCH (21:00)
[2022-04-03] MEDS: ATORVASTATIN 10 MG TABLET PO SCH (21:00)
[2022-04-03] MEDS: SENNOSIDES 1 TABLET PO SCH (21:00)
[2022-04-03] MEDS: METOCLOPRAMIDE HCL 10 MG/2 ML VIAL IV PRN (21:52)
[2022-04-04] MEDS: HYDROMORPHONE 2 MG/1 ML DISP.SYRIN IV PRN ×4 (04:15→20:53)
[2022-04-04] MEDS: METOCLOPRAMIDE HCL 10 MG/2 ML VIAL IV PRN ×3 (04:15→20:57)
[2022-04-04] MEDS: LEVOTHYROXINE SODIUM 75 MCG TABLET PO SCH (07:16)
[2022-04-04] MEDS: PANTOPRAZOLE SODIUM 40 MG TABLET.DR PO SCH (07:16)
[2022-04-04 08:06] LABS: POTASSIUM 3.9 mmol/L (3.5-5.1)
[2022-04-04 08:07] LABS: MEAN CORPUSCULAR HEMOGLOBIN 36.1 uug (24.7-32.8); MEAN CORPUSCULAR VOLUME 108.1 fL (75.5-95.3); PLATELET COUNT (AUTO) 244 K/uL (179-408)
[2022-04-04] MEDS: FOLIC ACID/VITAMIN B COMP W-C TABLET PO SCH (08:45)
[2022-04-04] MEDS: CHOLECALCIFEROL 1,000 UNIT TABLET PO SCH (08:46)
[2022-04-04] MEDS: ASPIRIN EC 81 MG TABLET.DR PO SCH (08:46)
[2022-04-04] MEDS: NYSTATIN POWDER 15 GM BOTTLE TOP SCH ×2 (08:46→20:58)
[2022-04-04] MEDS: NEPRO (VANILLA) 237 ML CAN PO SCH ×2 (08:46→16:40)
[2022-04-04] MEDS: METOPROLOL TARTRATE 25 MG TABLET PO SCH ×2 (08:54→20:57)
[2022-04-04] MEDS: AZITHROMYCIN 250 MG TABLET PO SCH (11:35)
[2022-04-04 11:48] VITALS: BP 115/53
[2022-04-04 16:00] VITALS: BP 123/57
--- NOTE | 2022-04-04 16:45 | NUR ---
patient complained full bladder and discomfort, bladder scan performed, with 600ml output, laureano inserted, with output of 650ml, with dark coffee color, sediments, UA sent to lab as ordered
[2022-04-04 17:27] LABS: *BLOOD, URINE 2+ (NEGATIVE); *CLARITY,URINE CLOUDY (CLEAR); *COLOR,URINE YELLOW (YELLOW); *KETONES,URINE TRACE (NEGATIVE); *UROBILINOGEN,URINE 0.2 E.U./dl (NORMAL); LEUKOCYTE ESTERASE ,URINE 3+ (NEGATIVE); NITRITE, URINE NEGATIVE (NEGATIVE); PH,URINE 5.5 (5.0-8.0); UGLUCOSE NEGATIVE (NEGATIVE)
[2022-04-04 17:33] LABS: *BILIRUBIN,URIN 2+ (NEGATIVE)
--- NOTE | 2022-04-04 17:48 | NUR ---
UA result reported to YISEL Tripathi
[2022-04-04 17:51] LABS: RBC,URINE 20-50 /HPF (0-3)
[2022-04-04 17:52] LABS: BACTERIA,URINE MANY /HPF (NONE SEEN); SQUAMOUS EPITHELIAL CELL,UR MODERATE /HPF (NONE SEEN); WBC,URINE TNTC /HPF (0-3); YEAST,URINE MODERATE /HPF (NONE SEEN)
[2022-04-04] MEDS ORDERED: CEFTRIAXONE /D5W 50ML IVPB **ER PYXIS IV ONE (19:02)
[2022-04-04] MEDS: CEFTRIAXONE 1 G in IV DEXTROSE 5% 50 ML IV SCH (19:05)
--- NOTE | 2022-04-04 19:19 | NUR ---
no acute distress noted, permacath intact at right upper chest, no active bleeding noted.
[2022-04-04] MEDS: ATORVASTATIN 10 MG TABLET PO SCH (20:56)
[2022-04-04] MEDS: MONTELUKAST SODIUM 10 MG TABLET PO SCH (20:57)
[2022-04-04] MEDS: SENNOSIDES 1 TABLET PO SCH (20:57)
[2022-04-04] MEDS: TEMAZEPAM 7.5 MG CAPSULE PO PRN (21:37)
[2022-04-05] MEDS: ONDANSETRON 4 MG/2 ML VIAL IV PRN ×2 (01:44→10:23)
[2022-04-05] MEDS: ACETAMINOPHEN 325 MG TABLET PO PRN ×2 (01:49→19:02)
[2022-04-05] MEDS: HYDROMORPHONE 2 MG/1 ML DISP.SYRIN IV PRN ×3 (04:17→12:25)
[2022-04-05] MEDS: METOCLOPRAMIDE HCL 10 MG/2 ML VIAL IV PRN ×2 (05:46→17:59)
[2022-04-05] MEDS: PANTOPRAZOLE SODIUM 40 MG TABLET.DR PO SCH (06:09)
[2022-04-05] MEDS: LEVOTHYROXINE SODIUM 75 MCG TABLET PO SCH (06:09)
[2022-04-05 07:48] LABS: HEMATOCRIT 29.4 % (31.2-41.9); MEAN CORPUSCULAR HEMOGLOBIN 34.8 uug (24.7-32.8); MEAN CORPUSCULAR VOLUME 109.3 fL (75.5-95.3); PLATELET COUNT (AUTO) 257 K/uL (179-408)
[2022-04-05 08:04] LABS: CREATININE 2.6 mg/dL (0.6-1.3)
[2022-04-05] MEDS: CHOLECALCIFEROL 1,000 UNIT TABLET PO SCH (08:30)
[2022-04-05] MEDS: FOLIC ACID/VITAMIN B COMP W-C TABLET PO SCH (08:31)
[2022-04-05] MEDS: ASPIRIN EC 81 MG TABLET.DR PO SCH (08:31)
[2022-04-05] MEDS: METOPROLOL TARTRATE 25 MG TABLET PO SCH ×2 (08:32→20:56)
[2022-04-05] MEDS: NYSTATIN POWDER 15 GM BOTTLE TOP SCH (08:40)
[2022-04-05] MEDS: NEPRO (VANILLA) 237 ML CAN PO SCH ×2 (08:40→16:57)
[2022-04-05 11:35] VITALS: BP 129/60
--- NOTE | 2022-04-05 14:21 | NUR ---
WOUND CARE CONSULT: PT REFUSED TO BE TURNED FOR SKIN ASSESSMENT AT THIS TIME DUE TO NAUSEA. RN NOTIFIED. PT FOLLOWED BY SURGICAL TEAM OF DR SHIPLEY FOR OPEN SKIN TO LEFT BUTTOCK WITH SCARRING WELL BREASTFOLD REDNESS/RASH, PRESENT ON ADMISSION. DEFER TO SURGICAL TEAM FOR BUTTOCK. RECOMMENDATIONS MADE FOR SKIN PROTECTION AND CARE OF BREASTFOLD RASH. DISCUSSED WITH NURSING STAFF. MD IN AGREEMENT WITH PLAN OF CARE.
[2022-04-05] MEDS ORDERED: REMEDY ESSENTIAL ZINC PASTE 113 GM TOP PRN (14:30)
[2022-04-05 15:44] VITALS: BP 141/71
[2022-04-05] MEDS: HYDROMORPHONE 1 MG/1 ML DISP.SYRIN IV PRN ×2 (16:52→21:01)
[2022-04-05] MEDS: CLOTRIMAZOLE 1% CREAM 30 GM TUBE TOP SCH (16:58)
[2022-04-05] MEDS: CEFTRIAXONE 1 G in IV DEXTROSE 5% 50 ML IV SCH (18:04)
--- NOTE | 2022-04-05 20:13 | NUR ---
RECEIVED REPORT FROM HELENA MAZARIEGOS NOC SHIFT. PATIENT IS ALERT AND & ORIENTED X4, AND SPEAKS ESTONIAN. PATIENT TOLERATES DIET AND PO/IV MEDICATIONS WELL. CARREON CATHETER PATENT AND DRAINING. PATIENT HAD REPORTS OF PAIN, BUT MANAGED WITH PAIN MEDICATIONS PER MD ORDER. PATIENT HAD REQUESTED A DECREASE IN DILAUDID FROM 1.5MG TO 1 MG. MD NOTIFIED AND CHANGED ORDER. PATIENT PENDING FOR HEMODIALYSIS. RN DID NOT ADMIN BLOOD PRESSURE WAITING FOR HEMODIALYSIS TO COME. NO ACUTE DISTRESSED NOTED. FALL PRECAUTIONS OBSERVED, BED IN LOWEST POSITION AND BED ALARM ACTIVATED. ALL NEEDS MET AT THIS TIME. ENDORSED CARE TO HELENA MAZARIEGOS, FOR CONTINUATION OF CARE.
[2022-04-05 20:25] VITALS: BP 137/64
[2022-04-05] MEDS: REMEDY ESSENTIAL ZINC PASTE 113 GM TOP SCH (20:52)
[2022-04-05] MEDS: SENNOSIDES 1 TABLET PO SCH (20:52)
[2022-04-05] MEDS: MONTELUKAST SODIUM 10 MG TABLET PO SCH (20:52)
[2022-04-05] MEDS: ATORVASTATIN 10 MG TABLET PO SCH (20:56)
[2022-04-05] MEDS: TEMAZEPAM 7.5 MG CAPSULE PO PRN (21:43)
[2022-04-06] MEDS: METOCLOPRAMIDE HCL 10 MG/2 ML VIAL IV PRN ×3 (02:26→14:52)
[2022-04-06] MEDS: HYDROMORPHONE 1 MG/1 ML DISP.SYRIN IV PRN ×5 (02:26→20:38)
[2022-04-06] MEDS: LEVOTHYROXINE SODIUM 75 MCG TABLET PO SCH (06:22)
[2022-04-06] MEDS: PANTOPRAZOLE SODIUM 40 MG TABLET.DR PO SCH (06:22)
[2022-04-06] MEDS: ASPIRIN EC 81 MG TABLET.DR PO SCH (08:02)
[2022-04-06] MEDS: CHOLECALCIFEROL 1,000 UNIT TABLET PO SCH (08:02)
[2022-04-06] MEDS: FOLIC ACID/VITAMIN B COMP W-C TABLET PO SCH (08:02)
[2022-04-06] MEDS: METOPROLOL TARTRATE 25 MG TABLET PO SCH ×2 (08:02→20:37)
[2022-04-06] MEDS: NEPRO (VANILLA) 237 ML CAN PO SCH ×2 (08:03→16:15)
[2022-04-06] MEDS: REMEDY ESSENTIAL ZINC PASTE 113 GM TOP SCH ×2 (08:03→20:44)
[2022-04-06] MEDS: CLOTRIMAZOLE 1% CREAM 30 GM TUBE TOP SCH ×2 (08:03→16:15)
[2022-04-06 08:27] VITALS: BP 112/77
[2022-04-06 08:27] LABS: HEMATOCRIT 27.6 % (31.2-41.9); MEAN CORPUSCULAR HEMOGLOBIN 35.3 uug (24.7-32.8); MEAN CORPUSCULAR VOLUME 108.8 fL (75.5-95.3); PLATELET COUNT (AUTO) 236 K/uL (179-408)
[2022-04-06 09:09] LABS: POTASSIUM 4.3 mmol/L (3.5-5.1)
[2022-04-06] MEDS ORDERED: FLUCONAZOLE 400MG /NS 200ML IV 400 MG in PREMIXED 1 EACH IV SCH (10:30)
[2022-04-06 11:26] VITALS: BP 142/72
[2022-04-06] MEDS ORDERED: FLUCONAZOLE 200 MG/NS 100ML IV 200 MG in PREMIXED 1 EACH IV ONE (12:00)
[2022-04-06 16:00] VITALS: BP 118/58
[2022-04-06] MEDS: CEFTRIAXONE 1 G in IV DEXTROSE 5% 50 ML IV SCH (17:57)
--- NOTE | 2022-04-06 19:57 | NUR ---
RECEIVED REPORT FROM TRUONG MAZARIEGOS CONCRETE ENGINEERING TECHNICIAN SHIFT. PATIENT ALERT & ORIENTED X4 AND SPEAKS SOUTH KOREAN. VITAL SIGNS STABLE. PATIENT TOLERATES PO AND IV MEDICATIONS WELL. PATIENT TOLERATES DIET. PATIENT CARREON CATHETER PATENT AND DRAINING. ONE SMALL BOWEL MOVEMENT NOTED. PAIN MANAGED WITH MEDICATIONS INDICATED. PATIENT REQUESTED TO BE ON ZOFRAN INSTEAD OF REGLAN, HER NAUSEA FELT UNCONTROLLED. RN NOTIFIED PROVIDER. PROVIDER ORDER ENTERED INDICATED. NO ACUTE DISTRESS NOTED. ALL NEEDS MET AT THIS TIME. ENDORSED CARE TO SASCHA RAMIREZ.
[2022-04-06] MEDS: MONTELUKAST SODIUM 10 MG TABLET PO SCH (20:37)
[2022-04-06] MEDS: ATORVASTATIN 10 MG TABLET PO SCH (20:37)
[2022-04-06] MEDS: SENNOSIDES 1 TABLET PO SCH (20:38)
[2022-04-06] MEDS: ONDANSETRON 4 MG/2 ML VIAL IV PRN (20:38)
[2022-04-06 20:46] VITALS: BP 145/59
[2022-04-07] MEDS: TEMAZEPAM 7.5 MG CAPSULE PO PRN ×2 (01:00→21:20)
[2022-04-07] MEDS: HYDROMORPHONE 1 MG/1 ML DISP.SYRIN IV PRN ×6 (01:00→23:21)
--- NOTE | 2022-04-07 03:45 | NUR ---
Awake alert and oriented x4 All needs attended. VSS. Patient getting dialysis at beginning of shift. Tolerated well. 2L out. No acute distress noted. Medicated with dilaudid 1 mg as needed. Relief noted. Purdy catheter intact draining yellow urine. Left upper midline intact flushed and patent. Kept comfortable. Will monitor patient.
[2022-04-07] MEDS: ONDANSETRON 4 MG/2 ML VIAL IV PRN ×4 (04:29→23:21)
[2022-04-07 05:04] VITALS: BP 113/52
[2022-04-07] MEDS: LEVOTHYROXINE SODIUM 75 MCG TABLET PO SCH (06:34)
[2022-04-07] MEDS: PANTOPRAZOLE SODIUM 40 MG TABLET.DR PO SCH (06:34)
[2022-04-07 07:11] LABS: HEMATOCRIT 27.8 % (31.2-41.9); MEAN CORPUSCULAR HEMOGLOBIN 35.9 uug (24.7-32.8); PLATELET COUNT (AUTO) 253 K/uL (179-408)
[2022-04-07 07:46] LABS: MAGNESIUM 1.9 mg/dL (1.8-2.4); POTASSIUM 3.4 mmol/L (3.5-5.1)
[2022-04-07 08:30] VITALS: BP 120/53
[2022-04-07] MEDS: METOPROLOL TARTRATE 25 MG TABLET PO SCH ×2 (08:48→21:13)
[2022-04-07] MEDS: CHOLECALCIFEROL 1,000 UNIT TABLET PO SCH (08:48)
[2022-04-07] MEDS: FOLIC ACID/VITAMIN B COMP W-C TABLET PO SCH (08:48)
[2022-04-07] MEDS: ASPIRIN EC 81 MG TABLET.DR PO SCH (08:48)
[2022-04-07] MEDS: REMEDY ESSENTIAL ZINC PASTE 113 GM TOP SCH ×2 (08:49→21:14)
[2022-04-07] MEDS: CLOTRIMAZOLE 1% CREAM 30 GM TUBE TOP SCH ×2 (08:49→17:51)
[2022-04-07] MEDS: NEPRO (VANILLA) 237 ML CAN PO SCH ×2 (08:50→17:00)
[2022-04-07] MEDS: FLUCONAZOLE 200 MG/NS 100ML IV 100 MG in PREMIXED 1 EACH IV SCH (09:41)
[2022-04-07] MEDS ORDERED: POTASSIUM CHLORIDE 10 MEQ TAB.PRT.SR PO ONE (10:00)
[2022-04-07 12:00] VITALS: BP 139/79
[2022-04-07 16:00] VITALS: BP 126/53
[2022-04-07] MEDS: CEFTRIAXONE 1 G in IV DEXTROSE 5% 50 ML IV SCH (17:45)
[2022-04-07] MEDS: MONTELUKAST SODIUM 10 MG TABLET PO SCH (21:13)
[2022-04-07] MEDS: SENNOSIDES 1 TABLET PO SCH (21:13)
[2022-04-07] MEDS: ATORVASTATIN 10 MG TABLET PO SCH (21:13)
--- NOTE | 2022-04-07 21:20 | NUR ---
Restoril given as per patient request to help her sleep .
[2022-04-07 22:00] VITALS: BP 141/63
--- NOTE | 2022-04-07 23:21 | NUR ---
pain medication give as per patient request c/o abdominal pain . Dilaudid 1 mg prn given . Zofran also given c/o nausea.
[2022-04-07] MEDS: diphenhydrAMINE 25 MG CAP PO PRN (23:23)
[2022-04-08] MEDS: HYDROMORPHONE 1 MG/1 ML DISP.SYRIN IV PRN ×4 (04:50→20:45)
[2022-04-08] MEDS: ONDANSETRON 4 MG/2 ML VIAL IV PRN ×2 (06:05→13:56)
[2022-04-08] MEDS: LEVOTHYROXINE SODIUM 75 MCG TABLET PO SCH (06:05)
[2022-04-08] MEDS: PANTOPRAZOLE SODIUM 40 MG TABLET.DR PO SCH (06:05)
[2022-04-08 08:09] LABS: CREATININE 2.4 mg/dL (0.6-1.3); POTASSIUM 4.2 mmol/L (3.5-5.1)
[2022-04-08] MEDS: METOPROLOL TARTRATE 25 MG TABLET PO SCH ×3 (09:00→22:08)
[2022-04-08] MEDS: REMEDY ESSENTIAL ZINC PASTE 113 GM TOP SCH ×2 (09:38→22:09)
[2022-04-08] MEDS: FLUCONAZOLE 200 MG/NS 100ML IV 100 MG in PREMIXED 1 EACH IV SCH (09:39)
[2022-04-08] MEDS: ASPIRIN EC 81 MG TABLET.DR PO SCH (09:44)
[2022-04-08] MEDS: CHOLECALCIFEROL 1,000 UNIT TABLET PO SCH (09:44)
[2022-04-08] MEDS: FOLIC ACID/VITAMIN B COMP W-C TABLET PO SCH (09:44)
[2022-04-08] MEDS: NEPRO (VANILLA) 237 ML CAN PO SCH ×2 (09:52→17:00)
[2022-04-08] MEDS: CLOTRIMAZOLE 1% CREAM 30 GM TUBE TOP SCH ×2 (09:52→17:00)
[2022-04-08 11:30] VITALS: BP 100/38
[2022-04-08 14:56] VITALS: BP 108/43
[2022-04-08] MEDS: CEFTRIAXONE 1 G in IV DEXTROSE 5% 50 ML IV SCH (18:00)
[2022-04-08 20:00] VITALS: BP 141/78
[2022-04-08] MEDS: SENNOSIDES 1 TABLET PO SCH (22:06)
[2022-04-08] MEDS: MONTELUKAST SODIUM 10 MG TABLET PO SCH (22:08)
[2022-04-08] MEDS: ATORVASTATIN 10 MG TABLET PO SCH (22:08)
[2022-04-08] MEDS: diphenhydrAMINE 25 MG CAP PO PRN (22:10)
[2022-04-08] MEDS: TEMAZEPAM 7.5 MG CAPSULE PO PRN (22:14)
[2022-04-09] MEDS: HYDROMORPHONE 1 MG/1 ML DISP.SYRIN IV PRN ×5 (00:49→21:00)
[2022-04-09 04:00] VITALS: BP 96/41
[2022-04-09] MEDS: LEVOTHYROXINE SODIUM 75 MCG TABLET PO SCH (06:33)
[2022-04-09] MEDS: PANTOPRAZOLE SODIUM 40 MG TABLET.DR PO SCH (06:33)
[2022-04-09] MEDS: ONDANSETRON 4 MG/2 ML VIAL IV PRN ×2 (06:35→13:57)
[2022-04-09] MEDS: CHOLECALCIFEROL 1,000 UNIT TABLET PO SCH (08:52)
[2022-04-09] MEDS: ASPIRIN EC 81 MG TABLET.DR PO SCH (08:52)
[2022-04-09] MEDS: FLUCONAZOLE 100 MG TABLET PO SCH (08:52)
[2022-04-09] MEDS: FOLIC ACID/VITAMIN B COMP W-C TABLET PO SCH (08:52)
[2022-04-09] MEDS: METOPROLOL TARTRATE 25 MG TABLET PO SCH ×2 (08:58→20:57)
[2022-04-09] MEDS: NEPRO (VANILLA) 237 ML CAN PO SCH ×2 (09:13→17:08)
[2022-04-09] MEDS: CLOTRIMAZOLE 1% CREAM 30 GM TUBE TOP SCH ×2 (09:13→17:09)
[2022-04-09] MEDS: REMEDY ESSENTIAL ZINC PASTE 113 GM TOP SCH ×2 (09:13→21:07)
[2022-04-09 12:00] VITALS: BP 110/52
[2022-04-09 16:00] VITALS: BP 110/54
[2022-04-09] MEDS: CEFTRIAXONE 1 G in IV DEXTROSE 5% 50 ML IV SCH (17:11)
[2022-04-09 20:00] VITALS: BP 124/54
[2022-04-09] MEDS: ATORVASTATIN 10 MG TABLET PO SCH (20:56)
[2022-04-09] MEDS: SENNOSIDES 1 TABLET PO SCH (20:56)
[2022-04-09] MEDS: MONTELUKAST SODIUM 10 MG TABLET PO SCH (20:56)
[2022-04-09] MEDS: TEMAZEPAM 7.5 MG CAPSULE PO PRN (21:55)
[2022-04-09] MEDS: diphenhydrAMINE 25 MG CAP PO PRN (21:55)
[2022-04-10] MEDS: HYDROMORPHONE 1 MG/1 ML DISP.SYRIN IV PRN (00:41)
[2022-04-10] MEDS: MORPHINE SULFATE 4 MG/1 ML DISP.SYRIN IV PRN ×5 (02:35→20:44)
[2022-04-10 04:00] VITALS: BP_SYST 100; BP_SYST 130; BP_DIAS 47; BP_DIAS 65
[2022-04-10] MEDS: ONDANSETRON 4 MG/2 ML VIAL IV PRN ×3 (05:02→20:44)
[2022-04-10] MEDS: PANTOPRAZOLE SODIUM 40 MG TABLET.DR PO SCH (06:05)
[2022-04-10] MEDS: LEVOTHYROXINE SODIUM 75 MCG TABLET PO SCH (06:05)
--- NOTE | 2022-04-10 06:30 | NUR ---
Pt complaining of 10/10 pain after bladder emptying. Pt requested for a different pain medication. Received order to change Dilaudid 1 mg to Morphine 4mg. Noted pain relief. Will continue to monitor.
[2022-04-10] MEDS: CHOLECALCIFEROL 1,000 UNIT TABLET PO SCH (08:22)
[2022-04-10] MEDS: ASPIRIN EC 81 MG TABLET.DR PO SCH (08:22)
[2022-04-10] MEDS: FLUCONAZOLE 100 MG TABLET PO SCH (08:22)
[2022-04-10] MEDS: FOLIC ACID/VITAMIN B COMP W-C TABLET PO SCH (08:22)
[2022-04-10] MEDS: METOPROLOL TARTRATE 25 MG TABLET PO SCH ×2 (09:00→20:47)
[2022-04-10] MEDS: CLOTRIMAZOLE 1% CREAM 30 GM TUBE TOP SCH ×2 (09:43→16:21)
[2022-04-10] MEDS: NEPRO (VANILLA) 237 ML CAN PO SCH ×2 (09:44→16:19)
[2022-04-10] MEDS: REMEDY ESSENTIAL ZINC PASTE 113 GM TOP SCH ×2 (09:44→20:47)
[2022-04-10 11:39] VITALS: BP 127/50
[2022-04-10 15:47] VITALS: BP 93/45
--- NOTE | 2022-04-10 16:01 | NUR ---
Pt. noted to be stable through out the shift. Compliance with the care given. Wound treatment done. All need attended and met. Bowel soft and non tender. Will keep monitoring the pt.
--- NOTE | 2022-04-10 16:41 | NUR ---
Pt. requested to have Dilaudid instead of Morphine and reported to Dr. Roldan and she did not agree.
[2022-04-10] MEDS: CEFTRIAXONE 1 G in IV DEXTROSE 5% 50 ML IV SCH (17:03)
[2022-04-10 20:13] VITALS: BP 99/38
[2022-04-10] MEDS: SENNOSIDES 1 TABLET PO SCH (20:46)
[2022-04-10] MEDS: diphenhydrAMINE 25 MG CAP PO PRN (20:46)
[2022-04-10] MEDS: ATORVASTATIN 10 MG TABLET PO SCH (20:46)
[2022-04-10] MEDS: MONTELUKAST SODIUM 10 MG TABLET PO SCH (20:48)
[2022-04-10] MEDS: TEMAZEPAM 7.5 MG CAPSULE PO PRN (22:28)
[2022-04-11] MEDS: MORPHINE SULFATE 4 MG/1 ML DISP.SYRIN IV PRN ×6 (00:48→22:44)
[2022-04-11] MEDS: ACETAMINOPHEN 325 MG TABLET PO PRN (01:43)
[2022-04-11] MEDS: ONDANSETRON 4 MG/2 ML VIAL IV PRN ×2 (03:34→21:51)
[2022-04-11 04:50] VITALS: BP 101/38
[2022-04-11] MEDS: LEVOTHYROXINE SODIUM 75 MCG TABLET PO SCH (06:25)
[2022-04-11] MEDS: PANTOPRAZOLE SODIUM 40 MG TABLET.DR PO SCH (06:25)
[2022-04-11 08:00] VITALS: BP 133/70
[2022-04-11] MEDS: CHOLECALCIFEROL 1,000 UNIT TABLET PO SCH (08:42)
[2022-04-11] MEDS: FLUCONAZOLE 100 MG TABLET PO SCH (08:42)
[2022-04-11] MEDS: METOPROLOL TARTRATE 25 MG TABLET PO SCH ×2 (08:43→21:50)
[2022-04-11] MEDS: ASPIRIN EC 81 MG TABLET.DR PO SCH (08:43)
[2022-04-11] MEDS: FOLIC ACID/VITAMIN B COMP W-C TABLET PO SCH (08:43)
[2022-04-11] MEDS: REMEDY ESSENTIAL ZINC PASTE 113 GM TOP SCH ×2 (08:44→21:51)
[2022-04-11] MEDS: CLOTRIMAZOLE 1% CREAM 30 GM TUBE TOP SCH ×2 (08:44→16:33)
[2022-04-11] MEDS: NEPRO (VANILLA) 237 ML CAN PO SCH ×2 (08:49→16:32)
[2022-04-11 11:37] VITALS: BP 133/63
[2022-04-11] MEDS: MIRALAX 17 GM POWD.PACK PO PRN (13:11)
[2022-04-11 16:47] VITALS: BP 106/58
[2022-04-11 20:00] VITALS: BP 108/60
[2022-04-11] MEDS: MONTELUKAST SODIUM 10 MG TABLET PO SCH (21:50)
[2022-04-11] MEDS: ATORVASTATIN 10 MG TABLET PO SCH (21:50)
[2022-04-11] MEDS: SENNOSIDES 1 TABLET PO SCH (21:50)
[2022-04-12] VITALS: BP 110/60
[2022-04-12] MEDS: diphenhydrAMINE 25 MG CAP PO PRN ×3 (00:17→23:23)
[2022-04-12] MEDS: MORPHINE SULFATE 4 MG/1 ML DISP.SYRIN IV PRN ×5 (02:52→22:25)
[2022-04-12 04:00] VITALS: BP 124/48
[2022-04-12] MEDS: PANTOPRAZOLE SODIUM 40 MG TABLET.DR PO SCH (06:28)
[2022-04-12] MEDS: LEVOTHYROXINE SODIUM 75 MCG TABLET PO SCH (06:28)
[2022-04-12] MEDS: ONDANSETRON 4 MG/2 ML VIAL IV PRN ×3 (06:54→21:25)
[2022-04-12 07:47] LABS: HEMATOCRIT 25.7 % (31.2-41.9); MEAN CORPUSCULAR HEMOGLOBIN 35.6 uug (24.7-32.8); MEAN CORPUSCULAR VOLUME 107.9 fL (75.5-95.3); PLATELET COUNT (AUTO) 273 K/uL (179-408)
--- NOTE | 2022-04-12 08:08 | NUR ---
SHIFT NOTE: PATIENT RECEIVED ALERT AND ORIENTED X4 PT LYING I N BED WATCHING REQUESTING PAIN MEDICATION BENARDYL FOR ITCHING TWICE DURING THE SHIFT AND MORPHINE 4MG 3 TIMES DURING SHIFT FOR PAIN. MEDICATION GIVEN ORDERED NO SIGNS OF ADVERSE REACTION FROM MEDICATION WILL CONTINUE TO MONITOR FOR SAFETY AND OTHER NEEDS PT MAY HAVE.
[2022-04-12 08:24] LABS: BILIRUBIN,TOTAL 0.3 mg/dL (0.2-1.0); CREATININE 3.1 mg/dL (0.6-1.3); MAGNESIUM 1.8 mg/dL (1.8-2.4); PHOSPHOROUS 4.7 mg/dL (2.5-4.9); POTASSIUM 5.7 mmol/L (3.5-5.1); TOTAL PROTEIN, SERUM 6.6 g/dL (6.4-8.2)
[2022-04-12] MEDS: FOLIC ACID/VITAMIN B COMP W-C TABLET PO SCH (09:00)
[2022-04-12] MEDS: METOPROLOL TARTRATE 25 MG TABLET PO SCH ×2 (09:00→21:00)
[2022-04-12] MEDS: FLUCONAZOLE 100 MG TABLET PO SCH (09:00)
[2022-04-12] MEDS: CHOLECALCIFEROL 1,000 UNIT TABLET PO SCH (09:00)
[2022-04-12] MEDS: ASPIRIN EC 81 MG TABLET.DR PO SCH (09:02)
[2022-04-12] MEDS: REMEDY ESSENTIAL ZINC PASTE 113 GM TOP SCH ×2 (09:21→21:26)
[2022-04-12] MEDS: CLOTRIMAZOLE 1% CREAM 30 GM TUBE TOP SCH ×2 (09:21→17:35)
[2022-04-12] MEDS: NEPRO (VANILLA) 237 ML CAN PO SCH ×2 (09:21→17:32)
[2022-04-12 11:33] VITALS: BP 131/94
[2022-04-12 16:35] VITALS: BP 107/50
[2022-04-12] MEDS: MIRALAX 17 GM POWD.PACK PO PRN (16:48)
--- NOTE | 2022-04-12 17:45 | NUR ---
Pt. noted to be stable through out the shift. Dialysis done today and no distress noted. Pt. keep asking for pain medication. All need attended and met. Compliance with the care given. Will keep monitoring the patient.
[2022-04-12 20:00] VITALS: BP 102/36
[2022-04-12] MEDS: MONTELUKAST SODIUM 10 MG TABLET PO SCH (21:00)
[2022-04-12] MEDS: ATORVASTATIN 10 MG TABLET PO SCH (21:22)
[2022-04-12] MEDS: SENNOSIDES 1 TABLET PO SCH (21:25)
[2022-04-12] MEDS: TEMAZEPAM 7.5 MG CAPSULE PO PRN (23:23)
[2022-04-13] MEDS: PANTOPRAZOLE SODIUM 40 MG TABLET.DR PO SCH (05:04)
[2022-04-13] MEDS: LEVOTHYROXINE SODIUM 75 MCG TABLET PO SCH (05:04)
[2022-04-13] MEDS: ONDANSETRON 4 MG/2 ML VIAL IV PRN ×2 (05:05→13:15)
[2022-04-13] MEDS: MORPHINE SULFATE 4 MG/1 ML DISP.SYRIN IV PRN ×6 (05:10→21:07)
--- NOTE | 2022-04-13 06:55 | NUR ---
Assessment for morphine was done at 0544.
[2022-04-13 07:43] LABS: HEMATOCRIT 26.5 % (31.2-41.9); MEAN CORPUSCULAR HEMOGLOBIN 35.5 uug (24.7-32.8); MEAN CORPUSCULAR VOLUME 107.7 fL (75.5-95.3); PLATELET COUNT (AUTO) 288 K/uL (179-408)
[2022-04-13 08:00] VITALS: BP 118/40
--- NOTE | 2022-04-13 08:00 | NUR ---
Patient in room upon initial contact pt,. with c/of pain, she was reminded that she received IV pain medication as it was documented. Patient requested to speak with Nursing chemical supervisor stating "I did not received any Iv pain medication from the night nurse and I want the chemical supervisor to be aware of it". Patient AAOX4. vitals stable. IV line patent laureano to gravity, On NC 3L. Will continue with care plan.
--- NOTE | 2022-04-13 08:15 | NUR ---
A call from [facility] and on the phone A patient care representative of agency [employer] and municipal court magistrate rn with report on pt.
[2022-04-13 08:32] LABS: BILIRUBIN,TOTAL 0.4 mg/dL (0.2-1.0); CREATININE 2.8 mg/dL (0.6-1.3); MAGNESIUM 1.8 mg/dL (1.8-2.4); PHOSPHOROUS 4.5 mg/dL (2.5-4.9)
[2022-04-13] MEDS: NEPRO (VANILLA) 237 ML CAN PO SCH (09:00)
[2022-04-13] MEDS: FOLIC ACID/VITAMIN B COMP W-C TABLET PO SCH (09:00)
[2022-04-13] MEDS: CHOLECALCIFEROL 1,000 UNIT TABLET PO SCH (09:00)
[2022-04-13] MEDS: METOPROLOL TARTRATE 25 MG TABLET PO SCH ×2 (09:00→21:00)
[2022-04-13] MEDS: ASPIRIN EC 81 MG TABLET.DR PO SCH (09:01)
[2022-04-13] MEDS: REMEDY ESSENTIAL ZINC PASTE 113 GM TOP SCH ×2 (09:10→21:00)
[2022-04-13] MEDS: CLOTRIMAZOLE 1% CREAM 30 GM TUBE TOP SCH ×2 (09:10→17:03)
--- NOTE | 2022-04-13 10:00 | NUR ---
Attending N.P. in the room to examine pt.
[2022-04-13 12:00] VITALS: BP 95/43
[2022-04-13] MEDS: MIRALAX 17 GM POWD.PACK PO PRN (13:15)
[2022-04-13 16:00] VITALS: BP 105/61
[2022-04-13] MEDS: GLUCERNA SHAKE 237 ML CAN PO SCH (17:00)
--- NOTE | 2022-04-13 19:19 | NUR ---
Patient left in bed resting comfortable. Pain and needs addressed throughout the shift. Patient compliant and cooperative. VItals were stable, will endorse for continuity of care.
[2022-04-13 20:00] VITALS: BP 198/36
[2022-04-13] MEDS: MONTELUKAST SODIUM 10 MG TABLET PO SCH (21:00)
[2022-04-13] MEDS: diphenhydrAMINE 25 MG CAP PO PRN (21:07)
[2022-04-13] MEDS: TEMAZEPAM 7.5 MG CAPSULE PO PRN (21:08)
[2022-04-13] MEDS: ATORVASTATIN 10 MG TABLET PO SCH (21:08)
[2022-04-13] MEDS: SENNOSIDES 1 TABLET PO SCH (21:08)
[2022-04-14] MEDS: MORPHINE SULFATE 4 MG/1 ML DISP.SYRIN IV PRN ×6 (01:13→22:46)
[2022-04-14] MEDS: ONDANSETRON 4 MG/2 ML VIAL IV PRN ×2 (01:36→03:28)
[2022-04-14 04:00] VITALS: BP 101/42
--- NOTE | 2022-04-14 05:11 | NUR ---
End of Shift Summary Pt is alert and oriented x4. Pt requested pain meds, nauseau meds, & sleep meds multiple time throught the shift and is very manipulative in trying to get medication before it is due or at the exact minute it is due. Throughout the shift, pt complained of pain but appeared comfortable thoughout the shift. Pt was watching her laptop computer or was talking on her cell phone for most of the night. Pt recieved a partial bath and a linen change. Pt c/o that she feels she is going to , but patient was redirected and she fell asleep.
[2022-04-14] MEDS: PANTOPRAZOLE SODIUM 40 MG TABLET.DR PO SCH (06:34)
[2022-04-14] MEDS: LEVOTHYROXINE SODIUM 75 MCG TABLET PO SCH (06:35)
[2022-04-14] MEDS: ACETAMINOPHEN 325 MG TABLET PO PRN ×2 (06:43→21:48)
--- NOTE | 2022-04-14 06:56 | NUR ---
Daily Weight bed scale is not working. Pt unable to get out of bed so More assistane is needed to replace pt's bed.
[2022-04-14] MEDS ORDERED: TEMAZEPAM 7.5 MG CAPSULE PO PRN (07:15)
[2022-04-14 08:11] VITALS: BP 134/49
[2022-04-14] MEDS: GLUCERNA SHAKE 237 ML CAN PO SCH ×2 (08:53→17:00)
[2022-04-14] MEDS: ASPIRIN EC 81 MG TABLET.DR PO SCH (08:55)
[2022-04-14] MEDS: FOLIC ACID/VITAMIN B COMP W-C TABLET PO SCH (08:57)
[2022-04-14] MEDS: CHOLECALCIFEROL 1,000 UNIT TABLET PO SCH (08:57)
[2022-04-14] MEDS: METOPROLOL TARTRATE 25 MG TABLET PO SCH ×2 (09:00→21:50)
[2022-04-14] MEDS: REMEDY ESSENTIAL ZINC PASTE 113 GM TOP SCH ×2 (11:19→21:00)
[2022-04-14 15:32] VITALS: BP 112/43
[2022-04-14] MEDS: CLOTRIMAZOLE 1% CREAM 30 GM TUBE TOP SCH ×2 (16:26→16:49)
[2022-04-14] MEDS: MIRALAX 17 GM POWD.PACK PO PRN (16:32)
--- NOTE | 2022-04-14 17:54 | NUR ---
PATIENT IS ALERT AND ORIENTED X4. DENIES HAVING CHEST PAIN DURING THIS SHIFT. CONTINUE MORPHINE 4 MG IV PRN Q 4HR FOR PAIN. LEFT UPPER ARM MIDLINE FLUSHING WELL. KEPT CLEAN AND COMFORTABLE.
[2022-04-14] MEDS: ATORVASTATIN 10 MG TABLET PO SCH (21:47)
[2022-04-14] MEDS: MIRTAZAPINE 15 MG TABLET PO SCH (21:47)
[2022-04-14] MEDS: MONTELUKAST SODIUM 10 MG TABLET PO SCH (21:47)
[2022-04-14] MEDS: TEMAZEPAM 15 MG CAPSULE PO PRN (21:51)
[2022-04-14] MEDS: SENNOSIDES 1 TABLET PO SCH (21:59)
[2022-04-14 22:58] VITALS: BP 109/49
[2022-04-15 04:00] VITALS: BP 98/62
--- NOTE | 2022-04-15 06:19 | NUR ---
End of Shift Summary Pt is alert and oriented x4. Pt c/o pain, medication administer with good effect. Pt requested miralax but she fell asleep immediately so Miralax was returned. Vital Signs Stable at the change of shift. Report endorsed to Day shift Nurse.
[2022-04-15] MEDS: GLUCERNA SHAKE 237 ML CAN PO SCH (08:00)
[2022-04-15] MEDS: ASPIRIN EC 81 MG TABLET.DR PO SCH (08:36)
[2022-04-15] MEDS: MORPHINE SULFATE 4 MG/1 ML DISP.SYRIN IV PRN (08:36)
[2022-04-15] MEDS: CHOLECALCIFEROL 1,000 UNIT TABLET PO SCH (08:36)
--- NOTE | 2022-04-15 08:36 | NUR ---
Awake, alert, oriented x 4. Reports of pain, Morphine given as ordered with relief, resting after.
[2022-04-15] MEDS: PANTOPRAZOLE SODIUM 40 MG TABLET.DR PO SCH (08:44)
[2022-04-15] MEDS: LEVOTHYROXINE SODIUM 75 MCG TABLET PO SCH (08:45)
[2022-04-15] MEDS: CLOTRIMAZOLE 1% CREAM 30 GM TUBE TOP SCH ×2 (08:47→17:34)
[2022-04-15] MEDS: FOLIC ACID/VITAMIN B COMP W-C TABLET PO SCH (08:47)
[2022-04-15] MEDS: REMEDY ESSENTIAL ZINC PASTE 113 GM TOP SCH ×2 (08:48→21:08)
[2022-04-15] MEDS: METOPROLOL TARTRATE 25 MG TABLET PO SCH ×2 (09:00→21:07)
--- NOTE | 2022-04-15 09:30 | NUR ---
PT able t do exercises in bed. Repositioned comfortably.
[2022-04-15 12:00] VITALS: BP 104/44
[2022-04-15] MEDS: PROTEIN SUPPLEMENT (PROSTAT) 30 ML LIQUID PO SCH ×3 (14:00→17:34)
[2022-04-15] MEDS: HYDROCODONE/APAP 5-325MG TABLET PO PRN ×2 (14:54→22:42)
--- NOTE | 2022-04-15 14:54 | NUR ---
Reports of pain. [place] po given, explained as ordered
[2022-04-15 16:02] VITALS: BP 96/47
--- NOTE | 2022-04-15 17:44 | NUR ---
With BM. Incontinence care done with sponge bath. Skin care and wound care done as ordered. Repositioned comfortably.
[2022-04-15] MEDS: ONDANSETRON 4 MG/2 ML VIAL IV PRN (18:54)
--- NOTE | 2022-04-15 18:55 | NUR ---
Reports of nausea, violet alfredo given and Zofran IV. Endorsed for further care
[2022-04-15 20:00] VITALS: BP 122/60
[2022-04-15] MEDS: SENNOSIDES 1 TABLET PO SCH (21:04)
[2022-04-15] MEDS: MONTELUKAST SODIUM 10 MG TABLET PO SCH (21:04)
[2022-04-15] MEDS: ATORVASTATIN 10 MG TABLET PO SCH (21:04)
[2022-04-15] MEDS: MIRTAZAPINE 15 MG TABLET PO SCH (21:04)
[2022-04-15] MEDS: TEMAZEPAM 15 MG CAPSULE PO PRN (22:49)
[2022-04-16] MEDS: HYDROCODONE/APAP 5-325MG TABLET PO PRN ×3 (05:41→17:54)
[2022-04-16] MEDS: LEVOTHYROXINE SODIUM 75 MCG TABLET PO SCH (06:37)
[2022-04-16] MEDS: PANTOPRAZOLE SODIUM 40 MG TABLET.DR PO SCH (06:37)
[2022-04-16 08:05] VITALS: BP 121/55
[2022-04-16] MEDS: PROTEIN SUPPLEMENT (PROSTAT) 30 ML LIQUID PO SCH ×2 (09:00→17:00)
[2022-04-16] MEDS: ASPIRIN EC 81 MG TABLET.DR PO SCH (09:01)
[2022-04-16] MEDS: CHOLECALCIFEROL 1,000 UNIT TABLET PO SCH (09:01)
[2022-04-16] MEDS: FOLIC ACID/VITAMIN B COMP W-C TABLET PO SCH (09:01)
[2022-04-16] MEDS: METOPROLOL TARTRATE 25 MG TABLET PO SCH ×2 (09:02→20:54)
[2022-04-16] MEDS: CLOTRIMAZOLE 1% CREAM 30 GM TUBE TOP SCH ×2 (09:03→17:07)
[2022-04-16] MEDS: REMEDY ESSENTIAL ZINC PASTE 113 GM TOP SCH ×2 (09:03→20:57)
[2022-04-16 11:30] VITALS: BP 98/56
[2022-04-16] MEDS: ONDANSETRON 4 MG/2 ML VIAL IV PRN ×2 (11:33→17:54)
[2022-04-16 15:15] VITALS: BP 102/50
[2022-04-16] MEDS: MIRTAZAPINE 15 MG TABLET PO SCH (20:52)
[2022-04-16] MEDS: SENNOSIDES 1 TABLET PO SCH (20:52)
[2022-04-16] MEDS: ACETAMINOPHEN 325 MG TABLET PO PRN (20:52)
[2022-04-16] MEDS: ATORVASTATIN 10 MG TABLET PO SCH (20:52)
[2022-04-16] MEDS: MONTELUKAST SODIUM 10 MG TABLET PO SCH (20:52)
[2022-04-16] MEDS: MIRALAX 17 GM POWD.PACK PO PRN (20:54)
[2022-04-16] MEDS: TEMAZEPAM 15 MG CAPSULE PO PRN (20:55)
[2022-04-16 20:58] VITALS: BP 101/43
[2022-04-17] MEDS: HYDROCODONE/APAP 5-325MG TABLET PO PRN ×2 (02:06→21:49)
[2022-04-17] MEDS: ONDANSETRON 4 MG/2 ML VIAL IV PRN ×2 (02:06→17:31)
[2022-04-17] MEDS: LEVOTHYROXINE SODIUM 75 MCG TABLET PO SCH (06:14)
[2022-04-17] MEDS: PANTOPRAZOLE SODIUM 40 MG TABLET.DR PO SCH (06:14)
[2022-04-17 08:00] VITALS: BP 92/41
[2022-04-17] MEDS: PROTEIN SUPPLEMENT (PROSTAT) 30 ML LIQUID PO SCH ×2 (09:00→16:33)
[2022-04-17] MEDS: METOPROLOL TARTRATE 25 MG TABLET PO SCH ×2 (09:00→21:00)
[2022-04-17] MEDS: REMEDY ESSENTIAL ZINC PASTE 113 GM TOP SCH ×2 (09:33→21:22)
[2022-04-17] MEDS: FOLIC ACID/VITAMIN B COMP W-C TABLET PO SCH (09:33)
[2022-04-17] MEDS: CLOTRIMAZOLE 1% CREAM 30 GM TUBE TOP SCH ×2 (09:33→16:33)
[2022-04-17] MEDS: CHOLECALCIFEROL 1,000 UNIT TABLET PO SCH (09:33)
[2022-04-17] MEDS: ASPIRIN EC 81 MG TABLET.DR PO SCH (09:33)
--- NOTE | 2022-04-17 11:20 | NUR ---
BP 94/37, REPORTED TO , NEW ORDER PLACED FOR NS 500ML BOLUS. FLUIDS ADMIN. BP INCREASED TO 111/62 HR 67. KADEN Chaves RN
[2022-04-17 11:22] VITALS: BP 90/37
[2022-04-17] MEDS ORDERED: IV NORMAL SALINE 1000 ML BAG IV ONE (12:00)
[2022-04-17] MEDS ORDERED: IV NORMAL SALINE 500 ML IV ONE (12:15)
[2022-04-17] MEDS: MIRALAX 17 GM POWD.PACK PO PRN (15:12)
[2022-04-17 15:41] VITALS: BP 94/45
[2022-04-17 20:07] VITALS: BP 111/51
[2022-04-17] MEDS: ATORVASTATIN 10 MG TABLET PO SCH (21:00)
[2022-04-17] MEDS: SENNOSIDES 1 TABLET PO SCH (21:20)
[2022-04-17] MEDS: MIRTAZAPINE 15 MG TABLET PO SCH (21:20)
[2022-04-17] MEDS: MONTELUKAST SODIUM 10 MG TABLET PO SCH (21:20)
[2022-04-17] MEDS: diphenhydrAMINE 25 MG CAP PO PRN (21:29)
[2022-04-18] MEDS: ONDANSETRON 4 MG/2 ML VIAL IV PRN (00:21)
[2022-04-18] MEDS: HYDROCODONE/APAP 5-325MG TABLET PO PRN ×3 (03:19→18:03)
[2022-04-18 04:40] VITALS: BP 123/75
[2022-04-18] MEDS: LEVOTHYROXINE SODIUM 75 MCG TABLET PO SCH (06:01)
[2022-04-18] MEDS: PANTOPRAZOLE SODIUM 40 MG TABLET.DR PO SCH (06:01)
[2022-04-18] MEDS: diphenhydrAMINE 25 MG CAP PO PRN ×2 (06:04→21:34)
[2022-04-18 07:06] LABS: HEMATOCRIT 25.6 % (31.2-41.9); MEAN CORPUSCULAR HEMOGLOBIN 34.7 uug (24.7-32.8); MEAN CORPUSCULAR VOLUME 107.9 fL (75.5-95.3); PLATELET COUNT (AUTO) 233 K/uL (179-408)
[2022-04-18 07:41] LABS: MAGNESIUM 2.1 mg/dL (1.8-2.4); PHOSPHOROUS 4.4 mg/dL (2.5-4.9)
[2022-04-18] MEDS: CHOLECALCIFEROL 1,000 UNIT TABLET PO SCH (08:08)
[2022-04-18] MEDS: FOLIC ACID/VITAMIN B COMP W-C TABLET PO SCH (08:08)
[2022-04-18] MEDS: PROTEIN SUPPLEMENT (PROSTAT) 30 ML LIQUID PO SCH ×2 (08:08→16:46)
[2022-04-18] MEDS: METOPROLOL TARTRATE 25 MG TABLET PO SCH ×2 (08:09→21:00)
[2022-04-18] MEDS: ASPIRIN EC 81 MG TABLET.DR PO SCH (08:09)
[2022-04-18] MEDS: REMEDY ESSENTIAL ZINC PASTE 113 GM TOP SCH ×2 (10:48→21:48)
[2022-04-18] MEDS: CLOTRIMAZOLE 1% CREAM 30 GM TUBE TOP SCH ×2 (10:48→16:47)
[2022-04-18 11:24] VITALS: BP 117/60
[2022-04-18] MEDS ORDERED: HYDROCODONE/APAP 5-325MG TABLET PO ONE (13:30)
[2022-04-18 15:11] VITALS: BP 122/48
--- NOTE | 2022-04-18 19:35 | NUR ---
Pt is A&Ox4 and is cooperative. No current S&S of distress. Pt on Rm air. Safety measures in place. Will continue to monitor.
[2022-04-18 20:00] VITALS: BP 97/47
[2022-04-18] MEDS: ATORVASTATIN 10 MG TABLET PO SCH (21:00)
[2022-04-18] MEDS: MONTELUKAST SODIUM 10 MG TABLET PO SCH (21:34)
[2022-04-18] MEDS: MIRTAZAPINE 15 MG TABLET PO SCH (21:34)
[2022-04-18] MEDS: SENNOSIDES 1 TABLET PO SCH (21:36)
--- NOTE | 2022-04-18 21:49 | NUR ---
Did not administer lipitor & metoprolol. BP too low: 97/47. Pt refused lipitor. Safety measures in place. Will continue to monitor. Addendum: 04/18/22 at 2152 by MUNIRA LUZ RN Pt refused lipitor right before administration. Will dispose med as it was out of packet.
--- NOTE | 2022-04-18 23:30 | NUR ---
At approximately 2218, Pt stated she has sharp pain in left rib area radiating to back. Pt is A&Ox4 and is able to speak without distress. Informed CABLE SPLICER APPRENTICE Marco Granger about situation. Ordered an EKG by Elkin for Pt. Results came with Dr. Granger stating, "It's ok." Will administer pain medication ijm. Safety measures in place. Will continue to monitor.
[2022-04-19] MEDS: HYDROCODONE/APAP 5-325MG TABLET PO PRN ×3 (01:22→17:41)
[2022-04-19 04:00] VITALS: BP 110/55
[2022-04-19] MEDS: LEVOTHYROXINE SODIUM 75 MCG TABLET PO SCH (06:38)
[2022-04-19] MEDS: PANTOPRAZOLE SODIUM 40 MG TABLET.DR PO SCH (06:38)
[2022-04-19] MEDS: CHOLECALCIFEROL 1,000 UNIT TABLET PO SCH (08:08)
[2022-04-19] MEDS: METOPROLOL TARTRATE 25 MG TABLET PO SCH ×2 (08:08→20:34)
[2022-04-19] MEDS: ASPIRIN EC 81 MG TABLET.DR PO SCH (08:08)
[2022-04-19] MEDS: FOLIC ACID/VITAMIN B COMP W-C TABLET PO SCH (08:08)
[2022-04-19] MEDS: PROTEIN SUPPLEMENT (PROSTAT) 30 ML LIQUID PO SCH ×2 (08:08→16:35)
[2022-04-19] MEDS: CLOTRIMAZOLE 1% CREAM 30 GM TUBE TOP SCH ×2 (08:39→16:36)
[2022-04-19] MEDS: REMEDY ESSENTIAL ZINC PASTE 113 GM TOP SCH ×2 (08:40→21:06)
[2022-04-19] MEDS: diphenhydrAMINE 25 MG CAP PO PRN ×2 (11:10→20:33)
[2022-04-19 11:51] VITALS: BP 131/68
[2022-04-19 16:55] VITALS: BP 112/61
--- NOTE | 2022-04-19 19:32 | NUR ---
Pt is A&Ox4 and is cooperative. No current S&S of distress. Pt on 2.5L of O2 NC. Pt had Rajwinder d/c'd. Safety measures in place. Will continue to monitor.
[2022-04-19 20:26] VITALS: BP 145/76
[2022-04-19] MEDS: MIRTAZAPINE 15 MG TABLET PO SCH (20:34)
[2022-04-19] MEDS: MONTELUKAST SODIUM 10 MG TABLET PO SCH (20:35)
[2022-04-19] MEDS: SENNOSIDES 1 TABLET PO SCH (20:35)
[2022-04-19] MEDS: TEMAZEPAM 15 MG CAPSULE PO PRN (20:35)
[2022-04-19] MEDS: ONDANSETRON 4 MG/2 ML VIAL IV PRN (20:41)
[2022-04-19] MEDS: ATORVASTATIN 10 MG TABLET PO SCH (21:00)
[2022-04-20] MEDS: HYDROCODONE/APAP 5-325MG TABLET PO PRN ×3 (01:05→20:48)
[2022-04-20 04:00] VITALS: BP 128/65
[2022-04-20] MEDS: ONDANSETRON 4 MG/2 ML VIAL IV PRN ×3 (05:39→23:58)
[2022-04-20] MEDS: PANTOPRAZOLE SODIUM 40 MG TABLET.DR PO SCH (06:02)
[2022-04-20] MEDS: LEVOTHYROXINE SODIUM 75 MCG TABLET PO SCH (06:02)
--- NOTE | 2022-04-20 06:28 | NUR ---
End of shift Note: Pt is A&Ox4 and is cooperative. No current S&S of distress. Pt on 2.5L of O2 NC. Pt didn't urinate but only had 30mL of urine in bladder according to bladder scan. Palpated and felt no distention. Pt is hemodialysis pt. Safety measures in place. Will continue to monitor.
[2022-04-20] MEDS: PROTEIN SUPPLEMENT (PROSTAT) 30 ML LIQUID PO SCH (08:17)
[2022-04-20] MEDS: METOPROLOL TARTRATE 25 MG TABLET PO SCH ×2 (08:17→20:50)
[2022-04-20] MEDS: FOLIC ACID/VITAMIN B COMP W-C TABLET PO SCH (08:17)
[2022-04-20] MEDS: ASPIRIN EC 81 MG TABLET.DR PO SCH (08:17)
[2022-04-20] MEDS: CHOLECALCIFEROL 1,000 UNIT TABLET PO SCH (08:17)
[2022-04-20] MEDS: REMEDY ESSENTIAL ZINC PASTE 113 GM TOP SCH ×2 (09:12→21:22)
[2022-04-20] MEDS: CLOTRIMAZOLE 1% CREAM 30 GM TUBE TOP SCH ×2 (09:13→16:21)
[2022-04-20 11:41] VITALS: BP 101/59
[2022-04-20 16:22] VITALS: BP 136/69
[2022-04-20] MEDS: diphenhydrAMINE 25 MG CAP PO PRN ×2 (17:58→23:06)
[2022-04-20 20:35] VITALS: BP 109/57
[2022-04-20] MEDS: SENNOSIDES 1 TABLET PO SCH (20:44)
[2022-04-20] MEDS: ATORVASTATIN 10 MG TABLET PO SCH (20:44)
[2022-04-20] MEDS: MONTELUKAST SODIUM 10 MG TABLET PO SCH (20:44)
[2022-04-20] MEDS: MIRTAZAPINE 15 MG TABLET PO SCH (20:56)
[2022-04-21] MEDS: TEMAZEPAM 15 MG CAPSULE PO PRN (02:05)
[2022-04-21] MEDS: HYDROCODONE/APAP 5-325MG TABLET PO PRN ×2 (03:23→10:32)
--- NOTE | 2022-04-21 04:43 | NUR ---
Patient has been complaining of having chest pain. Primary care was contacted and EKG was ordered. No abnormality was captured. Patient has been very anxious and had requested pain Meds, Zofran and sleeping pill several time during shift. She finally falling asleep around 0440 . she is sleeping comfortably no respiratory distress observed. Will continue to monitor patient for safety.
[2022-04-21 04:55] VITALS: BP 124/53
[2022-04-21] MEDS: LEVOTHYROXINE SODIUM 75 MCG TABLET PO SCH (06:22)
[2022-04-21] MEDS: PANTOPRAZOLE SODIUM 40 MG TABLET.DR PO SCH (06:22)
[2022-04-21 06:47] LABS: HEMATOCRIT 25.7 % (31.2-41.9); MEAN CORPUSCULAR HEMOGLOBIN 34.6 uug (24.7-32.8); PLATELET COUNT (AUTO) 252 K/uL (179-408)
--- NOTE | 2022-04-21 07:13 | NUR ---
Patient taking picture of her back. I went back with the nurse sup she still refused to let me take a picture of her back. I took pictures of the other body part except for her sacral.
[2022-04-21 07:27] LABS: CREATININE 2.5 mg/dL (0.6-1.3); MAGNESIUM 1.8 mg/dL (1.8-2.4); PHOSPHOROUS 3.5 mg/dL (2.5-4.9); POTASSIUM 4.2 mmol/L (3.5-5.1)
[2022-04-21] MEDS: FOLIC ACID/VITAMIN B COMP W-C TABLET PO SCH (08:17)
[2022-04-21] MEDS: ASPIRIN EC 81 MG TABLET.DR PO SCH (08:17)
[2022-04-21] MEDS: CHOLECALCIFEROL 1,000 UNIT TABLET PO SCH (08:17)
[2022-04-21] MEDS: METOPROLOL TARTRATE 25 MG TABLET PO SCH (08:18)
[2022-04-21] MEDS: CLOTRIMAZOLE 1% CREAM 30 GM TUBE TOP SCH (08:45)
[2022-04-21] MEDS: REMEDY ESSENTIAL ZINC PASTE 113 GM TOP SCH (08:45)
[2022-04-21 11:35] VITALS: BP 104/43
--- NOTE | 2022-04-21 14:00 | NUR ---
dc orders received noted and carried out,dc midline per md orders.dc instruction and education given to the pt,for rn report called [facility] no body ans case manger notified ,pt left the facility via ambulances in stable condition
== END 2022-04-21 14:04 | DRG 194 ==
LOC: ER 14:55 → TRANSITION 20:14 → TELE3 03-26 23:49 → MEDSURG3 03-28 22:39 → MED 04-13 07:30 → MEDSURG3 04-16 18:42
PROVIDERS: ADMIT Internal Medicine; ATTEND Registered Nurse
PROC: 5A1D70Z Performance of Urinary Filtration, Intermittent, Less than 6 Hours Per Day (ICD-10-PCS; principal; 2022-03-26)
PROC: 05H633Z Insertion of Infusion Device into Left Subclavian Vein, Percutaneous Approach (ICD-10-PCS; 2022-04-01)
PROC: B547ZZA Ultrasonography of Left Subclavian Vein, Guidance (ICD-10-PCS; 2022-04-01)
DX: I13.2 Hypertensive heart and chronic kidney disease with heart failure and with stage 5 chronic kidney disease, or end stage renal disease (principal); E44.0 Moderate protein-calorie malnutrition; N18.6 End stage renal disease; J15.9 Unspecified bacterial pneumonia; D63.1 Anemia in chronic kidney disease; E87.1 Hypo-osmolality and hyponatremia; E83.41 Hypermagnesemia; D63.8 Anemia in other chronic diseases classified elsewhere; M32.14 Glomerular disease in systemic lupus erythematosus; E11.22 Type 2 diabetes mellitus with diabetic chronic kidney disease; M32.9 Systemic lupus erythematosus, unspecified; E88.09 Other disorders of plasma-protein metabolism, not elsewhere classified; I50.43 Acute on chronic combined systolic (congestive) and diastolic (congestive) heart failure; E03.9 Hypothyroidism, unspecified; E87.5 Hyperkalemia; Z20.822 Contact with and (suspected) exposure to COVID-19; Z59.00 Homelessness unspecified; Z88.2 Allergy status to sulfonamides; Z88.0 Allergy status to penicillin; Z79.4 Long term (current) use of insulin; I25.10 Atherosclerotic heart disease of native coronary artery without angina pectoris; Z99.2 Dependence on renal dialysis; E78.5 Hyperlipidemia, unspecified; D53.9 Nutritional anemia, unspecified; E83.42 Hypomagnesemia; K59.00 Constipation, unspecified; Z89.421 Acquired absence of other right toe(s); Z95.5 Presence of coronary angioplasty implant and graft; M89.8X9 Other specified disorders of bone, unspecified site; F41.9 Anxiety disorder, unspecified; I25.2 Old myocardial infarction; E66.9 Obesity, unspecified; Z68.33 Body mass index [BMI] 33.0-33.9, adult; F15.90 Other stimulant use, unspecified, uncomplicated; Z71.3 Dietary counseling and surveillance; L98.9 Disorder of the skin and subcutaneous tissue, unspecified; B37.49 Other urogenital candidiasis; R31.9 Hematuria, unspecified
CPT/HCPCS: 36415; 71045; 74018; 76700; 83550; 83735; 84100; 84443; 84484; 85025; 86706; 87340; 90937; 93005; 93307; A4663; A6209; A6213; G0378; J0456; J0696; J0885; J1170; J1450; J1940; J2270; J2405; J2765; J7040; J7050; J7060; Q0144; Q0163